=== PATIENT | female | born 1960 | race Caucasian/White ===

== ENCOUNTER 2022-04-28 15:16 | Outpatient (CLI) | payer BC, SELFPAY ==
--- NOTE | ~2022-04-28 | MM_ITS ---
EXAMINATION: MM screening robi BI w pio HISTORY: Screening TECHNIQUE: Craniocaudal and mediolateral oblique 3-D tomosynthesis images were obtained and synthetic 2-D images were generated. CAD analysis was submitted and interpreted. COMPARISON: Comparison to multiple prior studies sequentially, with oldest reviewed study dated 02/18. BREAST PARENCHYMAL COMPOSITION: Breast composed of scattered areas of fibroglandular density FINDINGS: There are new focal asymmetries medially in the left breast on CC view. These are not well visualized on MLO view. The right breast is stable without evidence for malignancy. IMPRESSION: 1. New focal asymmetries medially in the left breast on CC view. 2. Additional mammographic views and possible breast ultrasound are recommended. BI-RADS Category 0: Incomplete: Needs additional imaging evaluation. Reviewed, dictated and finalized at location A. HER IMPRESSION: 1. New focal asymmetries medially in the left breast on CC view. 2. Additional mammographic views and possible breast ultrasound are recommended . BI-RADS Category 0: Incomplete: Needs additional imaging evaluation.
== END 2022-04-28 15:17 | disposition home or self-care (01) ==
PROVIDERS: PCP Family Medicine; Visit Provider Physician Assistant
DX: Z12.31 Encounter for screening mammogram for malignant neoplasm of breast (principal); R92.8 Other abnormal and inconclusive findings on diagnostic imaging of breast
CPT/HCPCS: 77063; 77067

== ENCOUNTER 2022-05-29 13:59 | Outpatient (CLI) | payer BC, SELFPAY ==
--- NOTE | ~2022-05-29 | US_ITS ---
US breast LT limited INDICATION: Follow-up left breast asymmetry TECHNIQUE: Dedicated Limited left breast ultrasound COMPARISON: No prior studies for comparison. FINDINGS: The left breast is composed of normal heterogeneous echotexture without focal solid or cyst ic mass. IMPRESSION: 1: Normal left breast ultrasound. No sonographic correlate to left breast asymmetry which is likely b enign. BI-RADS CATEGORY 3-PROBABLY BENIGN FINDING RECOMMENDATION: Six-month follow-up diagnostic left mammogram recommended. Reviewed, dictated and finalized at location A. TER LATHER IMPRESSION: 1: Normal left breast ultrasound. No sonographic correlate to left breast asymm etry which is likely benign. BI-RADS CATEGORY 3-PROBABLY BENIGN FINDING RECOMMENDATION: Six-month follow-up diagnostic left mammogram recommended.
== END 2022-05-29 14:00 | disposition home or self-care (01) ==
PROVIDERS: PCP Family Medicine; Visit Provider Family Medicine
DX: N63.20 Unspecified lump in the left breast, unspecified quadrant (principal); R92.8 Other abnormal and inconclusive findings on diagnostic imaging of breast
CPT/HCPCS: 76642

== ENCOUNTER 2023-02-07 14:04 | Outpatient (CLI) | payer BC, SELFPAY ==
--- NOTE | ~2023-02-07 | US_ITS ---
EXAMINATION: US arterial ankle brachial ind DATE: 02/07/2023 14:58 INDICATION: Peripheral vascular disease TECHNIQUE: Segmental pressures and plethysmographic and Doppler waveforms of the brachial and lower e xtremity arteries were obtained. COMPARISON: None. FINDINGS: Right and left brachial artery pressures of 127 mm Hg and 145 mm Hg, respectively, are concordant (no rmal difference <= 30 mmHg). The right ankle-brachial index (MARCOS) is 1.16 (normal >= 0.9-1.0). The right great toe-brachial index (TBI) is 0.55 (normal >= 0.65). Arterial Doppler waveforms are biphasic with brisk systolic upstrokes at both right posterior tibial and dorsalis pedis arteries. The left MARCOS is 1.00. The left TBI is 0.69. Arterial Doppler waveforms are biphasic with brisk systol ic upstrokes at both left posterior tibial and dorsalis pedis arteries. IMPRESSION: 1. Mild arterial occlusive disease to the right lower limb with normal right MARCOS but mildly decreased right TBI. 2. No significant arterial occlusive disease to the left lower limb with normal left MARCOS and TBI. Reviewed, dictated and finalized at location A. IMPRESSION: 1. Mild arterial occlusive disease to the right lower limb with normal right AB I but mildly decreased right TBI. 2. No significant arterial occlusive disease to the left lower limb with normal left MARCOS and TBI.
== END 2023-02-07 14:05 | disposition home or self-care (01) ==
PROVIDERS: PCP Family Medicine; Visit Provider Physician Assistant
DX: I73.9 Peripheral vascular disease, unspecified (principal)
CPT/HCPCS: 93922

== ENCOUNTER → 2023-04-24 07:48 | Outpatient (CLI) | payer BC, SELFPAY ==
--- NOTE | ~2023-04-24 | CT_ITS ---
EXAMINATION: CT lumbar spine wo con DATE: 04/24/2023 08:29 INDICATION: Spondylolisthesis, lumbar region. TECHNIQUE: Computed tomography (CT) of the lumbar spine was performed without intravenous contrast. A utomated exposure control and iterative reconstruction technique were employed. The dose-length produ ct was 888.10 mGy-cm. COMPARISON: Lumbar spine MRI 04/24/2023, chest 2 views 02/11/2015 FINDINGS: There is 4 degrees levocurvature of thoracolumbar spine. There is a hypoplastic rib at L1. There is 3 mm anterolisthesis of L3 on L4 and 8 mm anterolisthesis of L5 on S1. S1 is a transitional segment. There are changes of posterior fusion procedure from L4 to S1 with pedicle screws. There is moderately decreased disc height at L2-L3 and L3-L4. There are changes of anterior fusion procedures at L4-L5 and L5-S1 with interbody devices. There are laminectomies at L5 and S1. The following disc l evels are specifically discussed: L1-L2: The disc does not extend beyond the endplate margin. There is mild right and moderate left fac et joint osteoarthritis. There is no neural foraminal stenosis. There is no central canal stenosis. L2-L3: The disc is bulging. There is severe bilateral facet joint osteoarthritis. There is mild bilat eral neural foraminal stenosis. There is mild central canal stenosis. L3-L4: The disc is bulging. There is severe bilateral facet joint osteoarthritis. There is moderate b ilateral neural foraminal stenosis. There is moderate central canal stenosis. L4-L5: There is no facet joint hypertrophy. There is mild bilateral neural foraminal stenosis with po sterior decompression. There is mild central canal stenosis with posterior decompression. L5-S1: There is severe bilateral facet joint hypertrophy. There is mild bilateral neural foraminal st enosis. There is mild central canal stenosis with posterior decompression. IMPRESSION: 1. Moderate lumbar spondylosis. 2. Anterior and posterior fusion procedures from L4 to S1. Reviewed, dictated and finalized at location A. ATHLETE
--- NOTE | ~2023-04-24 | MR_ITS ---
MRI of the lumbar spine Clinical History: Spondylolisthesis Technique: Axial T2-weighted images, and sagittal T1-weighted, T2-weighted, and T2 fat-sat images wer e acquired. Findings: There is posterior fusion hardware from L3 through L5, with bilateral rods and transpedicul ar screws present. There are interbody fusion devices at the L3-L4 and L4-L5 disc spaces. There is 8 mm anterolisthesis of L4 over L5. No suspicious bone marrow signal abnormality seen. At L1-L2, there is diffuse disc bulge and moderate to severe facet arthropathy. There is severe spina l canal stenosis/thecal sac compression. There is severe bilateral neural foraminal, advised. At L2-L3, there is disc bulge and severe facet arthropathy, resulting in severe spinal canal stenosis /thecal sac compression. There is severe bilateral neural foraminal narrowing. At L3-L4, there is posterior decompression. No spinal canal stenosis. Neural foramina are relatively well-preserved. At L4-L5, there is posterior decompression. No central canal stenosis. There is probable severe bilat eral neural foraminal narrowing. At L5-S1, there is minimal disc bulge. There is moderate to severe facet arthropathy. No central arabella l stenosis or neural foraminal narrowing. Paravertebral soft tissues are unremarkable. Impression: Posterior and interbody fusion from L3 through L5, as detailed above, with underlying 8 mm anterolist hesis of L4 over L5. Severe degenerative spondylosis of the lumbar spine, especially at L1-L2 and L2-L3, there is severe c entral canal stenosis/thecal sac compression. Please see details above. Reviewed, dictated and finalized at [facility]. 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 Severe degenerative spondylosis of the lumbar spine, especially at L1-L2 and L2 -L3, there is severe central canal stenosis/thecal sac compression. Please see details above.
== END ==
DX: M43.06 Spondylolysis, lumbar region (principal); M43.27 Fusion of spine, lumbosacral region; M51.26 Other intervertebral disc displacement, lumbar region
CPT/HCPCS: 72131; 72148

== ENCOUNTER → 2023-05-19 07:14 | Outpatient (CLI) | payer BC, SELFPAY ==
--- NOTE | ~2023-05-19 | MM_ITS ---
EXAMINATION: MM screening robi BI w pio HISTORY: Screening TECHNIQUE: Craniocaudal and mediolateral oblique 3-D tomosynthesis images were obtained and synthetic 2-D images were generated. CAD analysis was submitted and interpreted. COMPARISON: Comparison to multiple prior studies sequentially, with oldest reviewed study dated 10/04. BREAST PARENCHYMAL COMPOSITION: There are scattered areas of fibroglandular density. FINDINGS: There is no evidence of suspicious mass, calcification, or architectural distortion to sugg est malignancy in either breast. There has been no suspicious interval change. IMPRESSION: 1. No mammographic evidence of malignancy. 2. Recommend routine screening mammography in one year. BI-RADS Category 1: Negative Reviewed, dictated and finalized at location A. TROMECHANICAL ENGINEER
== END ==
PROVIDERS: PCP Physician Assistant; Visit Provider Physician Assistant
DX: Z12.31 Encounter for screening mammogram for malignant neoplasm of breast (principal)
CPT/HCPCS: 77063; 77067

== ENCOUNTER 2023-07-27 09:11 | Inpatient (IN) | payer BC, SELFPAY ==
[2023-07-27] VITALS (8 sets, daily range): BP systolic 117–181; BP diastolic 66–110; PULSE 67–100; RESP 10–20; TEMP 36.2–36.8; O2SAT 92–98
--- NOTE | ~2023-07-27 | CT_ITS ---
EXAMINATION: CT brain wo con DATE: 07/29/2023 14:47 INDICATION: Altered LOC . TECHNIQUE: Computed tomography (CT) of the head was performed without intravenous contrast. The mA wa s adjusted according to patient size. Iterative reconstruction technique was employed. The dose-lengt h product was 605.33 mGy-cm. COMPARISON: None. FINDINGS: No acute intracranial hemorrhage or extra-axial fluid collection. No hydrocephalus, mass, or herniation. No acute ischemic infarct. Unremarkable dural venous sinus attenuation. No acute osseous abnormality. Minimal right ethmoid opacification, trace bilateral mastoid fluid, the remaining aerated spaces are clear. IMPRESSION: No acute intracranial process. Reviewed, dictated and finalized at location K. 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
--- NOTE | ~2023-07-27 | CT_ITS ---
EXAMINATION: CT lumbar spine wo con DATE: 07/27/2023 09:56 INDICATION: Low back pain radiating down the right leg. TECHNIQUE: Computed tomography (CT) of the lumbar spine was performed without intravenous contrast. A utomated exposure control and iterative reconstruction technique were employed. The dose-length produ ct was 1334.45 mGy-cm. COMPARISON: 04/24/2023 FINDINGS: Transitional thoracolumbar and lumbosacral segments with right-sided hypoplastic riblets at L1. S1 is partially lumbarized with left-sided transverse process. There are 4 intervening nonrib-bearing lumb ar segments. 3 mm anterolisthesis L3 on L4 and 4 mm anterolisthesis L5 on S1. L5 and S1 laminectomies and partial L4 laminectomy. Instrumented anterior and posterior spinal fusion procedures from L4-S1 with interbody fusion devices and bilateral vertical karen and pedicle screw fixations. Minimal anterio r wedging at T12. No acute fracture. Severe disc height loss with degenerative endplate changes at T1 0-T11, T11-T12 and L2-L3. Moderate disc height loss at T12-L1. Mild disc height loss at L3-L4. The fo llowing disc levels are specifically discussed: T11-T12: Disc is bulging. There is severe bilateral facet joint osteoarthritis. There is moderate queta ateral neural foraminal stenosis. There is mild central canal stenosis. T12-L1: Disc is bulging. There is mild left and moderate right facet joint osteoarthritis. There is m ild left and moderate right neural foraminal stenosis. There is no central canal stenosis. L1-L2: The disc does not extend beyond the endplate margin. There is mild bilateral facet osteoarthri tis. There is no neural foraminal stenosis. There is no central canal stenosis. L2-L3: Disc is bulging with large likely partially calcified right paracentral disc extrusion which e xtends 1.6 similar cephalad to the level of the inferior endplate of L2 which measures up to 11 mm me dial collateral and 7 mm AP contributing to severe central canal stenosis. There is moderate right an d moderate to severe left facet joint osteoarthritis. There is moderate left and severe right neural foraminal stenosis. L3-L4: Disc is bulging. There is severe bilateral facet joint osteoarthritis. There is moderate bilat eral neural foraminal stenosis. There is severe central canal stenosis. L4-L5: Mild hypertrophic change along the posterior margin of the fused disc space. There is also and instrumented fusion procedure the wording at the bilateral facet joints. There is mild bilateral priscila ral foraminal stenosis. With posterior decompression with no central canal stenosis. L5-S1: Mild hypertrophic changes along the posterior margin of the fused disc space most prominent at the neural foramina. Instrumented posterior spinal fusion at the facet joints. There is moderate queta ateral neural foraminal stenosis. There is posterior decompression with no central canal stenosis. IMPRESSION: 1. Severe lumbar spondylosis with significant interval progression at L2-L3 including a large right p aracentral disc extrusion contributing to severe central canal stenosis at this level. 2. Stable appearance of postoperative change and lower lumbar spine including combined instrumented L 4-S1 anterior and posterior spinal fusion with L5 and S1 laminectomies. Reviewed, dictated and finalized at location A. BIOLOGY SCIENTIST IMPRESSION: 1. Severe lumbar spondylosis with significant interval progression at L2-L3 inc luding a large right paracentral disc extrusion contributing to severe central canal stenosis at this level. 2. Stable appearance of postoperative change and lower lumbar spine including c ombined instrumented L4-S1 anterior and posterior spinal fusion with L5 and S1 laminectomies.
--- NOTE | ~2023-07-27 | MR_ITS ---
EXAMINATION: MR lumbar spine wo con DATE: 07/29/2023 07:20 INDICATION: Back pain with slight dysfunction and urinary retention TECHNIQUE: Magnetic resonance imaging (MRI) of the lumbar spine was performed without intravenous con trast. Sequences included sagittal T2-weighted FSE, sagittal T2-weighted FS FSE, sagittal T1-weighted FSE, and axial T2-weighted FSE. COMPARISON: CT dated 07/27/[address] and MRI dated 04/24/2023 FINDINGS: Transitional thoracolumbar and lumbosacral segments with right-sided hypoplastic riblets at L1. S1 is partially lumbarized with left-sided transverse process. There are 4 intervening nonrib-bearing lumb ar segments. 1-2 mm anterolisthesis L3 on L4 and 5 mm anterolisthesis L5 on S1. L5 and S1 laminectomi es and partial L4 laminectomy. Instrumented anterior and posterior spinal fusion procedures from L4-S 1 with interbody fusion devices and bilateral vertical karen and pedicle screw fixations. Minimal anter ior wedging at T12. Severe disc height loss with T2 hyperintense fibrovascular degenerative endplate changes at T10-T11, T11-T12 and L2-L3. Marrow signal is otherwise unremarkable. Moderate disc height loss at T12-L1. The conus medullaris terminates at L2. There is normal signal in the caudal spinal co rd. There are disc bulges with increased central signal which could be related to this calcification as seen on prior CT or annular fissures at T10-T11, T11-T12 and T12-L1. The following disc levels ar e specifically discussed: T10-T11: Imaged only on the sagittal images. Disc is bulging. There is mild left and severe right fac et osteoarthritis. There is moderate bilateral neural foraminal stenosis, right greater than left. Th ere is moderate to severe central canal stenosis. T11-T12: Imaged only on the sagittal images. Disc is bulging. There is severe bilateral facet osteoar thritis. There is moderate bilateral neural foraminal stenosis. There is mild to moderate central can al stenosis. T12-L1: Imaged only on the sagittal images. Disc is bulging. There is mild left and moderate right fa cet joint osteoarthritis. There is mild bilateral neural foraminal stenosis. There is mild central ca nal stenosis. L1-L2: The disc does not extend beyond the endplate margin. There is mild to moderate bilateral facet joint osteoarthritis. There is no neural foraminal stenosis. There is no central canal stenosis. L2-L3: Disc is bulging with annular fissure and large disc extrusion which extends up to 1.6 cm cepha lad to the level of the inferior endplate of L2. This most prominent in the right paracentral region but extends from foraminal zone to foraminal zone. There is moderate right and moderate to severe lef t facet joint osteoarthritis. There is severe bilateral neural foraminal stenosis. There is severe ce ntral canal stenosis. L3-L4: Disc is bulging with annular fissure and broad-based disc extrusion extending from the left pa racentral region to the right foraminal zone with disc material extending up to 4 mm cephalad to the level of the inferior endplate of L3. There is severe bilateral facet joint osteoarthritis. There is moderate bilateral neural foraminal stenosis. There is severe central canal stenosis. L4-L5: Mild hypertrophic change along the posterior margin of the fused disc space. There is also an instrumented fusion procedure at the bilateral facet joints. There is mild bilateral neural foraminal stenosis. There is posterior decompression with no central canal stenosis. L5-S1: Mild hypertrophic changes along the posterior margin of the fused disc space most prominent at the neural foramina. Instrumented posterior spinal fusion at the facet joints. There is moderate queta ateral neural foraminal stenosis. There is posterior decompression with no central canal stenosis. IMPRESSION: 1. Severe lumbar and lower thoracic spondylosis with significant interval progression at L2-L3 incl
--- NOTE | ~2023-07-27 | XR_ITS ---
EXAMINATION: XR chest 1V portable DATE: 07/29/2023 08:13 INDICATION: Leukocytosis TECHNIQUE: frontal view of the chest was obtained. COMPARISON: Chest radiograph dated 02/11/15 FINDINGS: The lungs remain clear with no focal airspace opacities, pulmonary edema, pleural effusion or pneumot horax. The cardiomediastinal silhouette is within normal limits for AP technique. IMPRESSION: 1. No acute cardiopulmonary disease. Reviewed, dictated and finalized at location A. D MACHINE OPERATOR
--- NOTE | ~2023-07-27 | CT_ITS ---
EXAMINATION: CTA brain carotid DATE: 07/29/2023 20:38 INDICATION: confusion TECHNIQUE: Computed tomographic angiography (CTA) of the head and neck was performed with 100 mL Omni paque-350 intravenous contrast. CTA of the neck was performed with intravenous contrast. Automated ex posure control and iterative reconstruction technique were employed. The dose-length product was 1186 .20 mGy-cm. Maximum intensity projection and volume rendered 3D-reconstructions were created by the t echnologist on a separate workstation. COMPARISON: CT brain, same date. FINDINGS: CTA HEAD: No large vessel occlusion, aneurysm, high flow vascular malformation, nidus or extravasation. Symmetr ic parenchymal enhancement. Patent cerebral veins. CTA NECK: Aortic arch and proximal great vessels: Moderate arch calcification. Normal arch anatomy. Right common carotid, carotid bifurcation, and internal carotid artery: Mild calcification at the bif urcation and proximal internal carotid artery.There is 0% stenosis of the proximal right internal car otid artery relative to normal distal artery lumen diameter (NASCET criteria). Left common carotid, carotid bifurcation, and internal carotid artery: No plaque.There is 0% stenosis of the proximal left internal carotid artery relative to normal distal artery lumen diameter (NASCET criteria). Vertebral arteries: No significant plaque or stenosis. Left vertebral artery is dominant. Severe hypo plasia of the right vertebral artery. Beam hardening and quantum mottle partially obscure the origin and proximal several centimeters of the right vertebral artery, which appears to be patent. Other findings: None. IMPRESSION: No large vessel intracranial occlusion, high-grade intracranial stenosis, or aneurysm. No carotid or vertebral artery occlusion, dissection, or significant stenosis. Reviewed, dictated and finalized at location K. T PATHOLOGIST IMPRESSION: No large vessel intracranial occlusion, high-grade intracranial stenosis, or an eurysm. No carotid or vertebral artery occlusion, dissection, or significant stenosis.
--- NOTE | 2023-07-27 09:20 | PC.NURSE ---
Pt states pain unrelieved with Gabapentin and Flexeril. Pt states treated for same c/o last week at [place].
[2023-07-27] MEDS: ACETAMINOPHEN 500 MG TABLET 1000 MG PO ×3 (09:58→20:28)
[2023-07-27] MEDS: diazePAM INJ (*CRX) 10 MG/2 ML SYRINGE 2 MG IV PUSH (09:59)
[2023-07-27] MEDS: KETOROLAC 30 MG/ML VIAL (*BKC) IV PUSH (10:00)
[2023-07-27] MEDS: methylPREDNISolone SOD SUCC 125 MG VIAL IV PUSH (10:00)
--- NOTE | 2023-07-27 10:06 | ED.GENADULT ---
HPI - General Adult General Chief complaint: Unspecified <DONTE Florse Last Filed: 07/27/23 15:04> Stated complaint: sciatica <DONTE Flores Last Filed: 07/27/23 15:04> Source: patient and old records reviewed <DONTE Flores Last Filed: 07/27/23 15:04> Mode of arrival: EMS <DONTE Flores Last Filed: 07/27/23 15:04> Limitations: no limitations <DONTE Flores Last Filed: 07/27/23 15:04> History of Present Illness HPI narrative: Patient is a 63-year-old female, with past medical history of chronic back pain status post lumbar fusion 2014, who presents the ED via EMS with report of sciatic pain. Patient reports having issues with right-sided lumbar pain with sciatica for the last several months. She has been seen her primary care doctor and pain management for this. She is currently taking gabapentin for her pain. Patient states pain became more severe this morning to the point that she was unable to walk or stand up due to the pain. She has not taken anything for the pain this morning. Reports intermittent numbness to top of right leg, denies saddle anesthesia. Denies bowel or bladder incontinence, difficulty urinating, weakness of lower extremities, abdominal pain, nausea, vomiting, fevers. <DONTE Flores Last Filed: 07/27/23 15:04> Related Data Home medications: Home Medications Medication Instructions Recorded Confirmed amlodipine 5 mg tablet 5 mg PO DAILY 07/25/22 07/27/23 atorvastatin 40 mg tablet 40 mg PO DAILY 07/25/22 07/27/23 diclofenac sodium 75 mg 75 mg PO BID 07/25/22 07/27/23 tablet,delayed release escitalopram oxalate 20 mg tablet 20 mg PO DAILY 07/25/22 07/27/23 lisinopril 20 1 tablet PO DAILY 07/25/22 07/27/23 mg-hydrochlorothiazide 25 mg tablet metformin 500 mg tablet 500 mg PO BID 07/25/22 07/27/23 pen needle, diabetic 32 gauge x #50 ea 07/25/22 07/27/23 5/32 (BD Zuleyma 2nd Gen Pen Needle) ursodiol 250 mg tablet 250 mg PO DAILY 07/25/22 07/27/23 gabapentin 400 mg capsule 300 mg PO TID 07/27/23 07/27/23 glimepiride 4 mg tablet 4 mg PO BID 07/27/23 07/27/23 <Juliana Marcial PA-C - Last Filed: 07/27/23 15:04> Allergies/adverse reactions: Allergies Allergy/AdvReac Type Severity Reaction Status Date / Time cefprozil Allergy Intermediate HIVES Verified 07/27/23 17:23 cephalexin Allergy Intermediate HIVES Verified 07/27/23 17:23 latex Allergy Intermediate BLISTERS Verified 07/27/23 17:23 <Juliana Marcial PA-C - Last Filed: 07/27/23 15:04> Review of Systems Review of Systems: CONSTITUTIONAL: Denies fever, chills, or sweats. CARDIOVASCULAR: Denies chest pain. RESPIRATORY: Denies dyspnea. GASTROINTESTINAL: Denies incontinence, abdominal pain, nausea, vomiting, or diarrhea. GENITOURINARY: Denies incontinence, dysuria or hematuria. MUSCULOSKELETAL: See HPI. NEUROLOGIC: Denies headache, dizziness, numbness, or weakness. <Juliana Marcial PA-C - Last Filed: 07/27/23 15:04> All systems reviewed & are unremarkable except as noted in HPI and below <Juliana Marcial PA-C - Last Filed: 07/27/23 15:04> [facility] Past Medical History Medical History: Medical History (Updated 07/27/23 @ 16:06 by Molly Eli PA-C) Chronic kidney disease, stage 2 (mild) Hyperlipidemia, unspecified Hypertensive chronic kidney disease with stage 1 through stage 4 chronic kidney disease, or unspecified chronic kidney disease Major depressive disorder, recurrent, unspecified Nicotine dependence, cigarettes, uncomplicated Nonalcoholic steatohepatitis (BLACK) Obstructive sleep apnea (adult) (pediatric) Tobacco dependence Type 2 diabetes mellitus with diabetic neuropathy, unspecified <Juliana Marcial PA-C - Last Filed: 07/27/23 15:04> Surgical History Surgical History: Surgical History (Updated 02/16/24 @ 16:02 by Molly Eli PA-C) History
--- NOTE | 2023-07-27 12:02 | PC.NURSE ---
Pt ambulated with 2 assist using walker. Pt tolerated standing, ambulated with shuffling gait 3-4 feet to recliner. States It feels like it is grabbing rubs right hip.
[2023-07-27] MEDS: traMADol HCL (*CRX) 50 MG TABLET PO (12:28)
[2023-07-27 14:38] LABS: Basophils Percent Auto 0.2 % (0.2-1.2); Hematocrit 49.5 % (37.0-47.0); Hemoglobin 16.4 g/dL (12.0-15.0); Immature Granulocyte Absolute 0.06 K/mm3 (0.00-0.031); Immature Granulocyte Percent A 0.5 % (0-0.5); Lymphocytes Absolute Auto 1.06 K/mm3 (0.9-3.2); Lymphocytes Percent Auto 8.5 % (18.3-44.2); Mean Corpuscular HGB Conc 33.1 g/dl (32-36); Mean Corpuscular Hemoglobin 31.7 pg (26-34); Mean Corpuscular Volume 95.6 fl (80-100); Mean Platelet Volume 11.9 fl (7.4-10.4); Monocytes Absolute Auto 0.1 K/mm3 (0.1-0.6); Monocytes Percent Auto 0.9 % (2.6-8.5); Neutrophils Absolute Auto 11.2 K/mm3 (1.3-6.7); Neutrophils Percent Auto 89.9 % (45.5-73.1); Platelet Count Result 205 k/mm3 (150-375); Red Blood Count 5.18 M/mm3 (4.2-5.4); Red Cell Distribution Width 13.3 % (11.5-14.5); White Blood Count 12.5 K/mm3 (4.5-10.0)
[2023-07-27 14:46] LABS: Alanine Aminotransferase 40 U/L (6-35); Albumin Level 4.3 g/dL (3.5-5.1); Alkaline Phosphatase 238 U/L (38-126); Anion Gap 11 mmol/L (8-16); Aspartate Amino Transferase 35 U/L (14-36); Bilirubin,Total 0.9 mg/dL (0.2-1.3); Blood Urea Nitrogen 14 mg/dL (7-17); Calcium 9.7 mg/dL (8.4-10.2); Carbon Dioxide 26 mmol/L (22-30); Chloride 98 mmol/L (98-107); Estimated CRCL calculation 75 ml/min; Estimated Glomerular Filt Rate > 60; Glucose 359 mg/dL (65-110); Potassium 4.1 mmol/L (3.4-5.0); Sodium 135 mmol/L (137-145)
[2023-07-27] MEDS: IBUPROFEN 600 MG TABLET PO ×2 (15:37→20:28)
--- NOTE | 2023-07-27 15:37 | WPDNEUROSGCN ---
Assessment and Plan Assessment and plan (1) Sciatica of right side associated with disorder of lumbar spine: Code(s): M53.86 - Other specified dorsopathies, lumbar region Status: Acute (2) Hx of spinal fusion: Code(s): Z98.1 - Arthrodesis status Status: Acute (3) Lumbar spinal stenosis due to adjacent segment disease after fusion procedure: Code(s): M48.061 - Spinal stenosis, lumbar region without neurogenic claudication; M51.36 - Other intervertebral disc degeneration, lumbar region Status: Acute Assessment and Plan: The patient is a pleasant 63-year-old female with previous L3-[address] Santos in [facility] (last surgery was 2015), who presents with intractable low back pain and right groin pain. Her symptoms have been progressing since Apr-May. CT lumbar study shows she has developed adjacent level stenosis at L2-3 and L1-2 with prior fusion at L3-5. I discussed the CT findings with the patient and explained to her that once her pain is controlled and she can safely discharge home she can either follow-up with us at [facility] verse Dr. Santos. She states she would rather go back and see her surgeon Dr. Santos. I told her this would be a good idea as I don't think doing an SCS trial (what has been purposed to her) would give her long time relief and the stenosis is severe and she could progress to having further neurologic symptoms. Patient gives understanding of this. All of her questions were answered, I told her I would leave our info if for some reason Dr. Santos does not take her insurance anymore. Continue pain control with narcotics, muscle relaxants, and consider short course of steroids if her blood sugar levels tolerate. Helga WELLS This case and plan was discussed with my attending Dr. Marrero, who agrees with the above Consult date: 07/27/23 Reason for consult: Intractable back pain and right leg symptoms, adjacent level lumbar stenosis with hx of prior L3-5 fusion. HPI: Debra Peres is a 63 year old female with history of low back pain, diabetic neuropathy, chronic left foot drop, degenerative spondylosis with prior L3-L5 fusion done by Derrek Santos at [facility] in [facility] (her last spinal surgery was in 2015.) She presents to [facility] today due to intractable back pain and right radicular leg symptoms that became severe last night while sleeping. She states she could not ambulate or bear any weight on her right leg due to the severity of radiating pain from her back region into her right groin. The patient reports progressive symptoms over the last 3 months, she has been working with Pain Management had an injection in May which she states flared up this right groin pain . She also admits to some weakness in her right proximal leg, she states she has a hard time lifting her leg in and out of the car. She denies any radiating left leg symptoms, no bladder or bowel dysfunction, no saddle anesthesias. She has had a chronic left foot drop since her 1st back surgery. Patient has also been working with physical therapy recently. She's had a lumbar MRI performed in April 2023, she has not returned back to see Dr. Santos since the fall of 2021. She's been taking gabapentin and diclofenac for her discomfort. [facility] Past Medical History Medical History (Updated 07/27/23 @ 16:06 by Molly Eli PA-C) Chronic kidney disease, stage 2 (mild) Hyperlipidemia, unspecified Hypertensive chronic kidney disease with stage 1 through stage 4 chronic kidney disease, or unspecified chronic kidney disease Major depressive disorder, recurrent, unspecified Nicotine dependence, cigarettes, uncomplicated Nonalcoholic steatohepatitis (BLACK) Obstructive sleep apnea (adult) (pediatric) Tobacco dependence Type 2 diabetes mellitus with diabetic neuropathy, unspecified Surgical History Surgical History (Updated 07/27/23 @ 16:02 by
--- NOTE | 2023-07-27 15:57 | PM.IMHP ---
H&P: HPI History of Present Illness Date/Time: 07/27/23 17:00 Chief Complaint: Right back, hip, and leg pain. Narrative: This is a 63-year-old female smoker with chronic kidney disease, hypertension, hyperlipidemia, and type 2 diabetes mellitus who presented to the emergency department via EMS from home for evaluation of right back, hip, and leg pain. The patient provides the following history. She had lumbar fusion done in [address] Santos at [facility]. Her pain was much better thereafter however in 2021 she once again started to have low back pain and after meeting with her spinal surgeon she was told that she would likely have to have surgery again which she has been trying to avoid. The last several months she has been having increasing issues, mostly with right-sided sciatica, and is to the point where she is now having numbness on the top of her leg and she has had several falls due to ?my leg giving out.? She saw add another specialist for a 2nd opinion in May at which time she was given 2 epidural injections which she believes made the pain worse. She was then referred to pain management for spinal stimulator and she has an upcoming appointment with that specialist next week. She has been on oral prednisone, has been participating in PT, and is on gabapentin at home. None of these modalities are providing her with any relief and things seemed to be get progressively worse. She has a cane and walker at home that she uses on days when her back pain is especially bad. She has chronic left footdrop and uses a brace on that leg. Overall she feels like she is not really safety even walk sometimes. She denies weakness in her legs however and also denies saddle anesthesia, urinary retention, and bowel incontinence. Lumbar CT shows severe lumbar spondylosis with significant interval progression L2-L3 including large right paracentral disc extrusion contributing to severe central canal stenosis at that level with stable appearing postoperative changes. She received several different modalities to treat her pain with only mild improvement. She is being admitted in this setting for pain control neurosurgery consultation. Review of Systems Review of Systems: Twelve systems were reviewed. Has sweats when her pain is bad. No fever or chills. No recent cold or flu symptoms. No chest pain or shortness of breath. Denies nausea, vomiting, and diarrhea. No dysuria. Glucose has been running high since she has been on p.o. prednisone. Denies blurry vision, polydipsia, and polyuria. Except as documented, all other systems were reviewed and are negative. [facility] Past Medical History Medical History Chronic kidney disease, stage 2 (mild) Hyperlipidemia, unspecified Hypertensive chronic kidney disease with stage 1 through stage 4 chronic kidney disease, or unspecified chronic kidney disease Major depressive disorder, recurrent, unspecified Nicotine dependence, cigarettes, uncomplicated Nonalcoholic steatohepatitis (BLACK) Obstructive sleep apnea (adult) (pediatric) Tobacco dependence Type 2 diabetes mellitus with diabetic neuropathy, unspecified Surgical History Surgical History History of cataract surgery Left- 04/08/2007 Right- 05/06/2007 History of section (12/1989) History of hysteroscopy (06/05/16) History of laser assisted in situ keratomileusis (2005) History of lumbar fusion (03/02/15) L3-L5. Family History Family History Father History of melanoma Grandparent Cerebrovascular accident Dementia Social History Social History Social History: Surrogate medical decision maker: Bhaskar Peres Sr., spouse. Code status: Full code. Smoking packs per day: 1 Smoking cigarettes
--- NOTE | 2023-07-27 16:49 | ADMGEN ---
This patient, Debra Peres, was admitted to 3 [facility] Room 330-02. Patient/family oriented to hospital policies and general routines including ID bracelet, bed and alarms, visiting hours, pain management, procedures, bathroom and other care routines, personal items, smoking policy, room service/diet, and visiting hours. Information on how to activate the Rapid Response Team has been discussed. Patient/Family are encouraged to report perceived risks to care and to ask questions if they do not understand what they are told or what they should do.
[2023-07-27 16:56] LABS: CRP 0.6 mg/dL (<1.0)
[2023-07-27 16:57] LABS: Hemoglobin A1C 10.7 % (<5.7)
[2023-07-27 17:06] LABS: Glucose Point of Care 404 mg/dl (65-105)
[2023-07-27 17:16] LABS: Erythrocyte Sedimentation Rate 12 mm/hr (0-20)
[2023-07-27 17:20] LABS: Procalcitonin 0.1 ng/mL
[2023-07-27] MEDS: INSULIN ASPART (*BKC) 100 UNITS/ML 12 UNITS SUB-Q (17:35)
[2023-07-27] MEDS: amLODIPine BESYLATE 5 MG TABLET PO (17:35)
[2023-07-27] MEDS: lisinopriL 20 MG TABLET PO (17:35)
[2023-07-27] MEDS: MORPHINE SULFATE (*CRX) 4 MG/ML INJ IV PUSH (17:35)
[2023-07-27 21:00] LABS: Glucose Point of Care 316 mg/dl (65-105)
[2023-07-27] MEDS: INSULIN ASPART (*BKC) 100 UNITS/ML 8 UNITS SUB-Q (21:03)
[2023-07-27] MEDS: HYDROcodone/acetaminophen (*CRX) 5-325 MG TABLET 1 TAB PO (22:14)
[2023-07-27] MEDS: GABAPENTIN 300 MG CAPSULE PO (22:14)
[2023-07-27 23:41] LABS: Glucose Point of Care 246 mg/dl (65-105)
[2023-07-28] VITALS (8 sets, daily range): BP systolic 106–140; BP diastolic 59–69; PULSE 73–94; RESP 10–20; TEMP 36.3–36.5; O2SAT 92–96
[2023-07-28] MEDS: INSULIN ASPART (*BKC) 100 UNITS/ML SUB-Q ×5 (00:20→20:47)
[2023-07-28] MEDS: GABAPENTIN 300 MG CAPSULE PO ×3 (05:53→20:40)
[2023-07-28] MEDS: HYDROcodone/acetaminophen (*CRX) 5-325 MG TABLET 1 TAB PO ×3 (05:53→20:40)
[2023-07-28 06:36] LABS: Hematocrit 44.6 % (37.0-47.0); Hemoglobin 14.9 g/dL (12.0-15.0); Mean Corpuscular HGB Conc 33.4 g/dl (32-36); Mean Corpuscular Hemoglobin 31.8 pg (26-34); Mean Corpuscular Volume 95.1 fl (80-100); Platelet Count Result 218 k/mm3 (150-375); Red Blood Count 4.69 M/mm3 (4.2-5.4); Red Cell Distribution Width 13.2 % (11.5-14.5); White Blood Count 15.9 K/mm3 (4.5-10.0)
[2023-07-28 06:44] LABS: Anion Gap 5 mmol/L (8-16); Blood Urea Nitrogen 29 mg/dL (7-17); Calcium 9.2 mg/dL (8.4-10.2); Carbon Dioxide 30 mmol/L (22-30); Chloride 98 mmol/L (98-107); Estimated CRCL calculation 53 ml/min; Estimated Glomerular Filt Rate 56; Glucose 263 mg/dL (65-110); Magnesium 1.7 mg/dL (1.6-2.3); Potassium 3.7 mmol/L (3.4-5.0); Sodium 133 mmol/L (137-145)
[2023-07-28 07:35] LABS: Glucose Point of Care 266 mg/dl (65-105)
[2023-07-28] MEDS: metFORMIN HCL 500 MG TABLET PO ×2 (09:27→17:50)
[2023-07-28] MEDS: ACETAMINOPHEN 500 MG TABLET 1000 MG PO ×3 (09:27→20:39)
[2023-07-28] MEDS: lisinopriL 20 MG TABLET PO (09:27)
[2023-07-28] MEDS: predniSONE 20 MG TABLET 60 MG PO (09:27)
[2023-07-28] MEDS: ATORVASTATIN 40 MG TABLET PO (09:27)
[2023-07-28] MEDS: ursodioL 300 MG CAPSULE PO (09:27)
[2023-07-28] MEDS: ESCITALOPRAM OXALATE 10 MG TABLET 20 MG PO (09:27)
[2023-07-28] MEDS: hydroCHLOROthiazide 25 MG TABLET PO (09:28)
[2023-07-28] MEDS: GLIMEPIRIDE 2 MG TABLET 4 MG PO ×2 (09:28→17:50)
[2023-07-28] MEDS: amLODIPine BESYLATE 5 MG TABLET PO (09:28)
[2023-07-28] MEDS: IBUPROFEN 600 MG TABLET PO ×3 (09:28→20:40)
[2023-07-28] MEDS: DICLOFENAC SOD 75 MG TABLET.EC PO ×2 (09:28→20:40)
--- NOTE | 2023-07-28 10:29 | PM.IMPN ---
Progress Note: A&P Assessment and Plan (1) Intractable back pain: Code(s): M54.9 - Dorsalgia, unspecified Status: Acute Assessment and Plan: Known bulging disc with right leg radicular pain with plans for pain control and outpatient follow-up with her own neurosurgeon at [place]. However now patient is having urinary retention and unable to get out of bed a couple hours after working with physical therapy. MRI ordered. Baclofen ordered for muscle spasms. (2) Sciatica of right side associated with disorder of lumbar spine: Code(s): M53.86 - Other specified dorsopathies, lumbar region Status: Acute Assessment and Plan: Known bulging disc with right leg radicular pain with plans for pain control and outpatient follow-up with her own neurosurgeon at [place]. However now patient is having urinary retention and unable to get out of bed a couple hours after working with physical therapy. MRI ordered. Baclofen ordered for muscle spasms. (3) Leukocytosis: Code(s): D72.829 - Elevated white blood cell count, unspecified Status: Acute Assessment and Plan: No obvious signs infection at this time, might be rising due to steroids. Blood cultures in process, ordered UA/Urine culture too. (4) Type 2 diabetes mellitus with hyperglycemia: Code(s): E11.65 - Type 2 diabetes mellitus with hyperglycemia Status: Acute Assessment and Plan: Blood sugars have been elevated and A1c is up to 10.7, ordered additional IV fluids. (5) Hypertension: Code(s): I10 - Essential (primary) hypertension Status: Acute Assessment and Plan: Blood pressure elevated arrival after initiation medicines. (6) Tobacco dependence: Code(s): F17.200 - Nicotine dependence, unspecified, uncomplicated Status: Acute Assessment and Plan: Smoking cessation discussed. Time Spent With Patient Time with patient: Greater than 35 minutes Subjective Date/time seen: 07/28/23 14:29 Interval history: This is a 63-year-old female patient with a history of lower back pain in prior lumbar surgery who is admitted for intractable right-sided radicular pain. Patient was seen by neuro surgery in the ER yesterday and plans to follow-up with her own neurosurgeon after discharge. The plan was to obtain adequate pain control and discharge home. Patient worked well with physical therapy but then a couple hours later could not get out of bed due to an severe pain and spasms of the right leg. Also patient reported she did not urinate at all last night or throughout the day today and bladder scan showed over 400 mL. Straight cath ordered. Will order MRI and not plan to discharge night. Review of Systems Review of Systems: All systems reviewed & are unremarkable except as noted in HPI and below Exam Narrative: General: Well-developed, nontoxic-appearing female in moderate amount of pain. HEENT: Normocephalic, atraumatic. PERRL, EOMI. Sclera anicteric. Oral mucosa moist. Neck: Supple. No JVD Respiratory: Lungs are clear to auscultation bilaterally. Cardiovascular: Regular rate and rhythm with S1-S2. Gastrointestinal: Abdomen is soft, obese, nontender, and nondistended with positive bowel sounds. Skin: Warm and dry. No rash or lesions on limited exam. Extremities: No cyanosis, clubbing, or edema. Radial and pedal pulses intact. Spine: No midline vertebral tenderness. Midline lumbar incision from prior surgery noted. Mild left foot drop. Neurological: Alert. Cranial nerves 2-12 are grossly intact. No gross focal deficits to casual conversation. Psychiatric: Pleasant and cooperative with normal mood and affect. Judgment and insight intact. Objective Data Vital Signs Vital Signs: Vital Signs - 24 hr 07/27/23 11:21 07/27/23 15:47 07/27/23 16:00 Temperature 36.8 C 36.2 C L Pulse Rate 67 98 100 Respiratory Rate 18 20 16 Blood Pressure 122/75 180/99 H 146/83 H Pul
[2023-07-28 11:30] LABS: Glucose Point of Care 334 mg/dl (65-105)
[2023-07-28] MEDS: BACLOFEN 10 MG TABLET 20 MG PO ×2 (12:25→20:39)
[2023-07-28] MEDS: MORPHINE SULFATE (*CRX) 4 MG/ML INJ IV PUSH (14:26)
[2023-07-28] MEDS: SODIUM CHLORIDE 0.9% IV 500 ML IV CONT (15:28)
[2023-07-28] MEDS: SODIUM CHLORIDE 0.9% IV 1,000 ML 100 ML IV CONT (15:29)
[2023-07-28 16:09] LABS: Appearance Urine Clear (Clear); Bacteria Urine None Seen /hpf; Bilirubin Urine Negative (Negative); Blood Urine Negative (Negative); Color Urine Dark Yellow (Yellow); Glucose Urine UA 2+ mg/dL (Negative); Ketones Urine Trace mg/dL (Negative); Leukocyte Esterase Ur Negative LEU/UL (Negative); Need Manual Microscopic Reviewed; Nitrate Urine Negative (Negative); Protein Urine 3+ mg/dL (Negative); RBC Urine 0-2 /hpf (0-2); Specific Grav Ur 1.027 (1.001-1.035); Squamous Epithelial Cell Urine Occasional /hpf (Few); WBC Urine 0-5 /hpf; pH Urine 5.5 (5.0-9.0)
[2023-07-28 16:11] LABS: Add Urine Microscopic? YES
[2023-07-28 16:53] LABS: Glucose Point of Care 320 mg/dl (65-105)
[2023-07-28] MEDS: AMITRIPTYLINE HCL 25 MG TABLET PO (20:41)
[2023-07-28 21:17] LABS: Glucose Point of Care 391 mg/dl (65-105)
[2023-07-29 02:49] VITALS: RESP 12; O2SAT 95
[2023-07-29] MEDS: GABAPENTIN 300 MG CAPSULE PO ×2 (05:51→21:02)
[2023-07-29 06:00] VITALS: BP 118/65; PULSE 71; RESP 19; TEMP 36.8; O2SAT 95
[2023-07-29] MEDS: BACLOFEN 10 MG TABLET 20 MG PO (06:15)
[2023-07-29] MEDS: HYDROcodone/acetaminophen (*CRX) 5-325 MG TABLET 1 TAB PO (06:16)
[2023-07-29 06:22] LABS: Basophils Percent Auto 0.1 % (0.2-1.2); Hematocrit 43.9 % (37.0-47.0); Hemoglobin 14.2 g/dL (12.0-15.0); Immature Granulocyte Absolute 0.09 K/mm3 (0.00-0.031); Immature Granulocyte Percent A 0.5 % (0-0.5); Lymphocytes Absolute Auto 3.18 K/mm3 (0.9-3.2); Lymphocytes Percent Auto 17.4 % (18.3-44.2); Mean Corpuscular HGB Conc 32.3 g/dl (32-36); Mean Corpuscular Hemoglobin 31.3 pg (26-34); Mean Corpuscular Volume 96.7 fl (80-100); Mean Platelet Volume 12.2 fl (7.4-10.4); Monocytes Percent Auto 5.3 % (2.6-8.5); Neutrophils Percent Auto 76.7 % (45.5-73.1); Platelet Count Result 200 k/mm3 (150-375); Red Blood Count 4.54 M/mm3 (4.2-5.4); Red Cell Distribution Width 13.3 % (11.5-14.5); White Blood Count 18.3 K/mm3 (4.5-10.0)
[2023-07-29 06:43] LABS: Alanine Aminotransferase 25 U/L (6-35); Albumin Level 3.5 g/dL (3.5-5.1); Alkaline Phosphatase 145 U/L (38-126); Anion Gap 4 mmol/L (8-16); Aspartate Amino Transferase 26 U/L (14-36); Bilirubin,Total 0.6 mg/dL (0.2-1.3); Blood Urea Nitrogen 41 mg/dL (7-17); Calcium 8.5 mg/dL (8.4-10.2); Carbon Dioxide 29 mmol/L (22-30); Chloride 98 mmol/L (98-107); Estimated CRCL calculation 53 ml/min; Estimated Glomerular Filt Rate 56; Glucose 297 mg/dL (65-110); Potassium 3.9 mmol/L (3.4-5.0); Sodium 131 mmol/L (137-145)
[2023-07-29 07:33] LABS: Glucose Point of Care 286 mg/dl (65-105)
[2023-07-29] MEDS: INSULIN ASPART (*BKC) 100 UNITS/ML SUB-Q ×4 (09:02→21:32)
[2023-07-29] MEDS: GLIMEPIRIDE 2 MG TABLET 4 MG PO ×2 (09:03→16:58)
[2023-07-29] MEDS: ESCITALOPRAM OXALATE 10 MG TABLET 20 MG PO (09:04)
[2023-07-29] MEDS: predniSONE 20 MG TABLET 60 MG PO (09:04)
[2023-07-29] MEDS: hydroCHLOROthiazide 25 MG TABLET PO (09:04)
[2023-07-29] MEDS: DICLOFENAC SOD 75 MG TABLET.EC PO ×2 (09:04→20:13)
[2023-07-29] MEDS: ACETAMINOPHEN 500 MG TABLET 1000 MG PO ×2 (09:04→20:13)
[2023-07-29] MEDS: metFORMIN HCL 500 MG TABLET PO ×2 (09:04→16:58)
[2023-07-29] MEDS: lisinopriL 20 MG TABLET PO (09:04)
[2023-07-29] MEDS: amLODIPine BESYLATE 5 MG TABLET PO (09:04)
[2023-07-29] MEDS: ursodioL 300 MG CAPSULE PO (09:04)
[2023-07-29] MEDS: IBUPROFEN 600 MG TABLET PO ×2 (09:05→20:13)
[2023-07-29] MEDS: ATORVASTATIN 40 MG TABLET PO (09:05)
--- NOTE | 2023-07-29 11:26 | PM.IMPN ---
Progress Note: A&P Assessment and Plan (1) Altered mental status: Code(s): R41.82 - Altered mental status, unspecified Status: Acute Assessment and Plan: 07/29: Episode of confusion and disorientation that progressed to unconscious state throughout the day. Patient did respond to painful stimuli. She also began to respond to administration Narcan. Sent for CT scan of the head. Also due to increasing white blood cell count ordered lumbar puncture to assess for meningitis. Will start IV antibiotics. Additional blood cultures have been on. Pfeiffer catheter has been placed due to urinary retention altered level of consciousness and inability to ambulate. (2) Intractable back pain: Code(s): M54.9 - Dorsalgia, unspecified Status: Acute Assessment and Plan: Known bulging disc with right leg radicular pain with plans for pain control and outpatient follow-up with her own neurosurgeon at [place]. However now patient is having urinary retention and unable to get out of bed a couple hours after working with physical therapy. MRI ordered. Baclofen ordered for muscle spasms. 07/29: MRI of the spine obtained before patient's episode of altered LOC (3) Sciatica of right side associated with disorder of lumbar spine: Code(s): M53.86 - Other specified dorsopathies, lumbar region Status: Acute Assessment and Plan: Known bulging disc with right leg radicular pain with plans for pain control and outpatient follow-up with her own neurosurgeon at [place]. However now patient is having urinary retention and unable to get out of bed a couple hours after working with physical therapy. MRI ordered. Baclofen ordered for muscle spasms. (4) Leukocytosis: Code(s): D72.829 - Elevated white blood cell count, unspecified Status: Acute Assessment and Plan: No obvious signs infection at this time, might be rising due to steroids. Blood cultures in process, ordered UA/Urine culture too. 07/29: White blood cell count continues to rise. Repeat blood cultures drawn. Chest x-ray negative. UA unremarkable. start IV antibiotics and obtain lumbar puncture. (5) Type 2 diabetes mellitus with hyperglycemia: Code(s): E11.65 - Type 2 diabetes mellitus with hyperglycemia Status: Acute Assessment and Plan: Blood sugars have been elevated and A1c is up to 10.7, ordered additional IV fluids. (6) Hypertension: Code(s): I10 - Essential (primary) hypertension Status: Acute Assessment and Plan: Blood pressure elevated arrival after initiation medicines. (7) Tobacco dependence: Code(s): F17.200 - Nicotine dependence, unspecified, uncomplicated Status: Acute Assessment and Plan: Smoking cessation discussed. Time Spent With Patient Time with patient: Greater than 35 minutes Subjective Date/time seen: 07/29/23 13:06 Interval history: This is a 63-year-old female patient who was admitted for right lower back pain. Yesterday she had urinary retention. Ordered MRI which has been accomplished but not read. Neurosurgery had decided the patient can be discharged after pain control and follow-up with her own neurosurgeon at [place]. The plan for today was for her to see physical therapy and be discharged home with pain medication. However, after working with physical therapy patient could not get out of the bed again and she began to have change in level of consciousness. Her decrease in consciousness was rather delayed onset until she became responsive only to painful stimuli. It was noted that patient did have a visitor for a very brief moment. Patient appeared to be over sedated though she had not received any sedating medications since day shift started. Patient did respond to small amount of IV Narcan. Sent for CT scan of brain. Discontinued baclofen. Pfeiffer catheter inserted due to urinary retention and inability to stand up as well as
[2023-07-29] MEDS: SODIUM CHLORIDE 0.9% IV 1,000 ML 100 ML IV CONT ×2 (11:30→21:02)
[2023-07-29 11:35] LABS: Glucose Point of Care 249 mg/dl (65-105)
[2023-07-29 12:04] LABS: Fractional Inspired Oxygen 21 %; HCO3 VBG 24.6 mEq/l (24.0-30.0); PCO2 VBG 40.8 mmHg (42.0-48.0); pH VBG 7.398 (7.300-7.400)
[2023-07-29 12:05] LABS: Device ROOM AIR
[2023-07-29 12:08] LABS: Hematocrit 42.3 % (37.0-47.0); Hemoglobin 13.9 g/dL (12.0-15.0); Mean Corpuscular HGB Conc 32.9 g/dl (32-36); Mean Corpuscular Hemoglobin 31.4 pg (26-34); Mean Corpuscular Volume 95.5 fl (80-100); Mean Platelet Volume 11.7 fl (7.4-10.4); Platelet Count Result 226 k/mm3 (150-375); Red Blood Count 4.43 M/mm3 (4.2-5.4); Red Cell Distribution Width 13.3 % (11.5-14.5); White Blood Count 20.3 K/mm3 (4.5-10.0)
[2023-07-29 12:17] LABS: Acetaminophen < 10 ug/mL (10-30); Ammonia < 9 umol/L (9-30); Lactic Acid Reflex 1.6 mmol/L (0.7-2.0); Salicylate < 1.0 mg/dL (2-20)
[2023-07-29 12:18] LABS: Alanine Aminotransferase 24 U/L (6-35); Albumin Level 3.5 g/dL (3.5-5.1); Alkaline Phosphatase 149 U/L (38-126); Anion Gap 6 mmol/L (8-16); Aspartate Amino Transferase 21 U/L (14-36); Bilirubin,Total 0.5 mg/dL (0.2-1.3); Blood Urea Nitrogen 41 mg/dL (7-17); Calcium 8.5 mg/dL (8.4-10.2); Carbon Dioxide 24 mmol/L (22-30); Chloride 101 mmol/L (98-107); Estimated CRCL calculation 41 ml/min; Estimated Glomerular Filt Rate 42; Glucose 253 mg/dL (65-110); Potassium 3.4 mmol/L (3.4-5.0); Sodium 131 mmol/L (137-145)
[2023-07-29 12:22] LABS: Beta-Hydroxybutyrate/Acetoacetate 0.11 mmol/L (0.02-0.27)
[2023-07-29 13:07] VITALS: BP 122/73; PULSE 77; RESP 18; TEMP 35.9; O2SAT 99
[2023-07-29] MEDS: NALOXONE HCL 0.4 MG/ML VIAL 0.1 MG IV PUSH (13:13)
[2023-07-29] MEDS: NALOXONE HCL 0.4 MG/ML VIAL (13:45)
[2023-07-29 13:53] LABS: Barbiturate Screen Urine Negative (Negative)
[2023-07-29 14:00] VITALS: BP 117/65; PULSE 73; RESP 10; TEMP 36.3; O2SAT 97
[2023-07-29 14:01] LABS: Amphetamine Screen Urine Negative (Negative); Cannabinoid Screen Urine Negative (Negative); Cocaine Screen Urine Negative (Negative); Methadone Screen Urine Negative (Negative); Opiate Screen Urine Positive (Negative); Phencyclidine Screen Urine Negative (Negative)
[2023-07-29 14:13] LABS: Benzodiazepines Screen Urine Positive (Negative)
[2023-07-29 14:53] LABS: Procalcitonin 0.1 ng/mL
[2023-07-29] MEDS: cefTRIAXone 2 GM/NS 100 ML 2 GM/100 ML BAG IVPB (15:15)
[2023-07-29 16:33] LABS: Vitamin B12 > 1000.0 pg/mL (239-931)
--- NOTE | 2023-07-29 16:40 | PC.NURSE ---
Patient noted to be more lethargic and difficult to arouse. Patient opening eyes to sternal rub but not responding to questions. Vital signs stable. See vital signs flow sheet. Hospitalist Blaise Jensen, AUTOMOBILE INSPECTOR, made aware and responded at bedside to assess patient at 1305. Narcan order received at 1307 and administered at 1313. Patient more arousable but still not answering questions when asked. Further orders obtained. Patient started becoming more arousable around 1455. Patient able to answer orientation questions but noted difficulty finding words when asked various questions and noted to speak some words repetitively. This RN asked patient if she took anything besides what nursing has given her. Patient noted her step-son visited her today. First patient noted that she did not take anything. Later patient noted to keep repeating he's a drug addict and klonopin . When asked again if she took anything aside from what nursing has given her, she stated I don't know. Maybe . Floor RN at bedside during conversation. Hospitalist made aware of conversation. Patient being moved closer to nurses for closer observation. No visiting per hospitalist. Patient made aware and is agreeable to plan.
[2023-07-29] MEDS: VANCOMYCIN 2,000 MG/NS 500 ML 2,000 MG/500 ML BAG 250 MG IVPB (16:51)
[2023-07-29 16:59] LABS: Glucose Point of Care 299 mg/dl (65-105)
[2023-07-29 17:50] LABS: Folic Acid > 20.0 ng/mL (2.76->20)
[2023-07-29] MEDS: AMITRIPTYLINE HCL 25 MG TABLET PO (20:13)
[2023-07-29 21:23] VITALS: BP 134/57; PULSE 83; RESP 17; TEMP 36.2; O2SAT 95
[2023-07-29 21:24] LABS: Glucose Point of Care 281 mg/dl (65-105)
[2023-07-29 22:33] LABS: MRSA (PCR) DETECTED (NOT DETECTE)
[2023-07-30] MEDS: cefTRIAXone 2 GM/NS 100 ML 2 GM/100 ML BAG IVPB ×2 (03:42→15:08)
[2023-07-30 05:54] VITALS: BP 143/70; PULSE 84; RESP 18; TEMP 36.6; O2SAT 96
[2023-07-30] MEDS: SODIUM CHLORIDE 0.9% IV 1,000 ML 100 ML IV CONT ×2 (05:59→16:57)
[2023-07-30] MEDS: GABAPENTIN 300 MG CAPSULE PO ×3 (05:59→21:30)
[2023-07-30 06:27] LABS: Basophils Percent Auto 0.1 % (0.2-1.2); Hematocrit 40.1 % (37.0-47.0); Hemoglobin 13.5 g/dL (12.0-15.0); Immature Granulocyte Absolute 0.06 K/mm3 (0.00-0.031); Immature Granulocyte Percent A 0.4 % (0-0.5); Lymphocytes Absolute Auto 2.82 K/mm3 (0.9-3.2); Mean Corpuscular HGB Conc 33.7 g/dl (32-36); Mean Corpuscular Hemoglobin 32.1 pg (26-34); Mean Corpuscular Volume 95.2 fl (80-100); Mean Platelet Volume 12.2 fl (7.4-10.4); Monocytes Absolute Auto 0.9 K/mm3 (0.1-0.6); Monocytes Percent Auto 6.3 % (2.6-8.5); Neutrophils Percent Auto 74.2 % (45.5-73.1); Platelet Count Result 161 k/mm3 (150-375); Red Blood Count 4.21 M/mm3 (4.2-5.4); Red Cell Distribution Width 13.2 % (11.5-14.5); White Blood Count 14.9 K/mm3 (4.5-10.0)
[2023-07-30 06:49] LABS: Alanine Aminotransferase 22 U/L (6-35); Albumin Level 3.2 g/dL (3.5-5.1); Alkaline Phosphatase 150 U/L (38-126); Anion Gap 8 mmol/L (8-16); Aspartate Amino Transferase 33 U/L (14-36); Bilirubin,Total 0.4 mg/dL (0.2-1.3); Blood Urea Nitrogen 34 mg/dL (7-17); Calcium 8.5 mg/dL (8.4-10.2); Carbon Dioxide 21 mmol/L (22-30); Chloride 107 mmol/L (98-107); Estimated CRCL calculation 57 ml/min; Estimated Glomerular Filt Rate > 60; Glucose 222 mg/dL (65-110); Magnesium 2.2 mg/dL (1.6-2.3); Potassium 3.3 mmol/L (3.4-5.0); Sodium 136 mmol/L (137-145)
[2023-07-30 07:18] LABS: Glucose Point of Care 214 mg/dl (65-105)
[2023-07-30 08:05] VITALS: BP 138/70; PULSE 86; TEMP 36.9; O2SAT 96
[2023-07-30] MEDS: POTASSIUM CHLORIDE 20 MEQ ER TABLET 60 MEQ PO (08:08)
[2023-07-30] MEDS: INSULIN ASPART (*BKC) 100 UNITS/ML SUB-Q ×4 (08:09→21:33)
[2023-07-30] MEDS: hydroCHLOROthiazide 25 MG TABLET PO (08:10)
[2023-07-30] MEDS: predniSONE 20 MG TABLET 60 MG PO (08:11)
[2023-07-30] MEDS: ESCITALOPRAM OXALATE 10 MG TABLET 20 MG PO (08:11)
[2023-07-30] MEDS: lisinopriL 20 MG TABLET PO (08:11)
[2023-07-30] MEDS: ATORVASTATIN 40 MG TABLET PO (08:11)
[2023-07-30] MEDS: amLODIPine BESYLATE 5 MG TABLET PO (08:11)
[2023-07-30] MEDS: DICLOFENAC SOD 75 MG TABLET.EC PO ×2 (08:11→21:30)
[2023-07-30] MEDS: ursodioL 300 MG CAPSULE PO (08:11)
[2023-07-30] MEDS: metFORMIN HCL 500 MG TABLET PO ×2 (08:11→16:58)
[2023-07-30] MEDS: GLIMEPIRIDE 2 MG TABLET 4 MG PO ×2 (08:12→16:58)
[2023-07-30] MEDS: ACETAMINOPHEN 500 MG TABLET 1000 MG PO ×3 (08:19→21:30)
[2023-07-30] MEDS: IBUPROFEN 600 MG TABLET PO ×3 (08:19→21:30)
--- NOTE | 2023-07-30 08:50 | PM.IMPN ---
Progress Note: A&P Assessment and Plan (1) Altered mental status: Code(s): R41.82 - Altered mental status, unspecified Status: Acute Assessment and Plan: 07/29: Episode of confusion and disorientation that progressed to unconscious state throughout the day. Patient did respond to painful stimuli. She also began to respond to administration Narcan. Sent for CT scan of the head. Also due to increasing white blood cell count ordered lumbar puncture to assess for meningitis. Will start IV antibiotics. Additional blood cultures have been on. Pfeiffer catheter has been placed due to urinary retention altered level of consciousness and inability to ambulate. 07/30: Back to baseline. Cancel MRI and Lumbar Puncture (2) Accidental overdose: Code(s): T50.901A - Poisoning by unspecified drugs, medicaments and biological substances, accidental (unintentional), initial encounter Status: Acute Assessment and Plan: 07/30: Unprescribed benzodiazepine in urine drug screen while altered. AMS now resolved and back to baseline. Poly-pharmacy as patient also received narcotics and baclofen. (3) Intractable back pain: Code(s): M54.9 - Dorsalgia, unspecified Status: Acute Assessment and Plan: Known bulging disc with right leg radicular pain with plans for pain control and outpatient follow-up with her own neurosurgeon at [place]. However now patient is having urinary retention and unable to get out of bed a couple hours after working with physical therapy. MRI ordered. Baclofen ordered for muscle spasms. 07/29: MRI of the spine obtained before patient's episode of altered LOC (4) Sciatica of right side associated with disorder of lumbar spine: Code(s): M53.86 - Other specified dorsopathies, lumbar region Status: Acute Assessment and Plan: Known bulging disc with right leg radicular pain with plans for pain control and outpatient follow-up with her own neurosurgeon at [place]. However now patient is having urinary retention and unable to get out of bed a couple hours after working with physical therapy. MRI ordered. Baclofen ordered for muscle spasms. (5) Leukocytosis: Code(s): D72.829 - Elevated white blood cell count, unspecified Status: Acute Assessment and Plan: No obvious signs infection at this time, might be rising due to steroids. Blood cultures in process, ordered UA/Urine culture too. 07/29: White blood cell count continues to rise. Repeat blood cultures drawn. Chest x-ray negative. UA unremarkable. start IV antibiotics and obtain lumbar puncture. 07/30: Lumbar puncture cancelled as above. (6) Type 2 diabetes mellitus with hyperglycemia: Code(s): E11.65 - Type 2 diabetes mellitus with hyperglycemia Status: Acute Assessment and Plan: Blood sugars have been elevated and A1c is up to 10.7, ordered additional IV fluids. (7) Hypertension: Code(s): I10 - Essential (primary) hypertension Status: Acute Assessment and Plan: Blood pressure elevated arrival after initiation medicines. (8) Tobacco dependence: Code(s): F17.200 - Nicotine dependence, unspecified, uncomplicated Status: Acute Assessment and Plan: Smoking cessation discussed. Time Spent With Patient Time with patient: 25 - 35 minutes Subjective Date/time seen: 07/30/23 08:50 Interval history: Patient awake, alert and oriented. No residual confusion or altered level of consciousness noted. Patient very angry when I explained her episode of altered consciousness yesterday. Patient tested positive for benzodiazepines which should not have been in her system as she had been in the hospital for a couple days and no benzodiazepines given or prescribed. Patient stated her stepson gave her a pill but then stated it must have been on his hands because he is a druggie. Patient became more upset when we informed her that she would
[2023-07-30 11:24] LABS: Glucose Point of Care 242 mg/dl (65-105)
[2023-07-30 14:00] VITALS: BP 163/91; PULSE 105; RESP 16; TEMP 35.6; O2SAT 96
[2023-07-30 16:36] LABS: Glucose Point of Care 401 mg/dl (65-105)
--- NOTE | 2023-07-30 17:57 | PC.NURSE ---
Offered Nocotine patch patient refused
[2023-07-30 20:49] VITALS: BP 120/51; PULSE 86; RESP 15; TEMP 36.8; O2SAT 96
[2023-07-30 21:12] LABS: Glucose Point of Care 321 mg/dl (65-105)
[2023-07-30] MEDS: CYCLOBENZAPRINE HCL 5 MG TABLET PO (21:30)
[2023-07-30] MEDS: PANTOPRAZOLE 40 MG TABLET PO (21:30)
[2023-07-30] MEDS: AMITRIPTYLINE HCL 25 MG TABLET PO (21:30)
[2023-07-30] MEDS: INSULIN GLARGINE (*BKC) 100 UNITS/ML 10 UNITS SUB-Q (21:32)
[2023-07-31] MEDS: ACETAMINOPHEN 500 MG TABLET 1000 MG PO ×4 (03:34→21:20)
[2023-07-31] MEDS: IBUPROFEN 600 MG TABLET PO ×2 (03:34→09:31)
[2023-07-31] MEDS: CYCLOBENZAPRINE HCL 5 MG TABLET PO ×3 (05:23→21:20)
[2023-07-31] MEDS: GABAPENTIN 300 MG CAPSULE PO ×3 (05:23→21:20)
[2023-07-31 05:42] VITALS: BP 134/59; PULSE 76; RESP 15; TEMP 36.6; O2SAT 96
[2023-07-31 06:57] LABS: Basophils Percent Auto 0.1 % (0.2-1.2); Eosinophils Percent Auto 0.1 % (0-4.4); Hemoglobin 13.1 g/dL (12.0-15.0); Immature Granulocyte Absolute 0.05 K/mm3 (0.00-0.031); Immature Granulocyte Percent A 0.3 % (0-0.5); Lymphocytes Absolute Auto 4.82 K/mm3 (0.9-3.2); Lymphocytes Percent Auto 32.1 % (18.3-44.2); Mean Corpuscular HGB Conc 33.6 g/dl (32-36); Mean Corpuscular Hemoglobin 32.3 pg (26-34); Mean Corpuscular Volume 96.3 fl (80-100); Mean Platelet Volume 12.1 fl (7.4-10.4); Monocytes Absolute Auto 1.2 K/mm3 (0.1-0.6); Monocytes Percent Auto 8.2 % (2.6-8.5); Neutrophils Absolute Auto 8.9 K/mm3 (1.3-6.7); Neutrophils Percent Auto 59.2 % (45.5-73.1); Platelet Count Result 161 k/mm3 (150-375); Red Blood Count 4.05 M/mm3 (4.2-5.4); Red Cell Distribution Width 13.5 % (11.5-14.5)
[2023-07-31 07:15] LABS: Alanine Aminotransferase 31 U/L (6-35); Albumin Level 3.1 g/dL (3.5-5.1); Alkaline Phosphatase 131 U/L (38-126); Anion Gap 1 mmol/L (8-16); Aspartate Amino Transferase 26 U/L (14-36); Bilirubin,Total 0.6 mg/dL (0.2-1.3); Blood Urea Nitrogen 26 mg/dL (7-17); Calcium 8.7 mg/dL (8.4-10.2); Carbon Dioxide 26 mmol/L (22-30); Chloride 107 mmol/L (98-107); Estimated CRCL calculation 67 ml/min; Estimated Glomerular Filt Rate > 60; Glucose 163 mg/dL (65-110); Magnesium 2.1 mg/dL (1.6-2.3); Potassium 3.4 mmol/L (3.4-5.0); Sodium 134 mmol/L (137-145)
[2023-07-31 07:24] LABS: Anisocytosis 1+ (NORMAL); Platelet Estimate Adequate (Adequate); Schistocytes None Seen (NORMAL); Smudge Cells PRESENT
[2023-07-31 07:40] LABS: Glucose Point of Care 160 mg/dl (65-105)
[2023-07-31] MEDS: INSULIN ASPART (*BKC) 100 UNITS/ML SUB-Q ×5 (09:29→21:21)
[2023-07-31] MEDS: hydroCHLOROthiazide 25 MG TABLET PO (09:30)
[2023-07-31] MEDS: predniSONE 20 MG TABLET 60 MG PO (09:30)
[2023-07-31] MEDS: ATORVASTATIN 40 MG TABLET PO (09:31)
[2023-07-31] MEDS: PANTOPRAZOLE 40 MG TABLET PO ×2 (09:31→21:20)
[2023-07-31] MEDS: GLIMEPIRIDE 2 MG TABLET 4 MG PO ×2 (09:31→18:14)
[2023-07-31] MEDS: ursodioL 300 MG CAPSULE PO (09:31)
[2023-07-31] MEDS: DICLOFENAC SOD 75 MG TABLET.EC PO ×2 (09:31→21:20)
[2023-07-31] MEDS: lisinopriL 20 MG TABLET PO (09:31)
[2023-07-31] MEDS: ESCITALOPRAM OXALATE 10 MG TABLET 20 MG PO (09:31)
[2023-07-31] MEDS: metFORMIN HCL 500 MG TABLET PO ×2 (09:31→18:14)
[2023-07-31] MEDS: amLODIPine BESYLATE 5 MG TABLET PO (09:32)
[2023-07-31 11:20] LABS: Glucose Point of Care 180 mg/dl (65-105)
--- NOTE | 2023-07-31 11:50 | PCOTNOTE ---
Attempted to see patient this A.M. Patient declined, stated she is busy with phone calls figureing out her plan for discharge. Patient requested to be checked on at a later time this afternoon.
--- NOTE | 2023-07-31 12:54 | PM.IMPN ---
Progress Note: A&P Assessment and Plan (1) Altered mental status: Code(s): R41.82 - Altered mental status, unspecified Status: Acute Assessment and Plan: 07/29: Episode of confusion and disorientation that progressed to unconscious state throughout the day. Patient did respond to painful stimuli. She also began to respond to administration Narcan. CT of the head shoiwng no acute findings. CTA head/neck showing no acute findings. She admits to taking benzo brought in by family MRI and Lumbar Puncture cancelled. (2) Accidental overdose: Code(s): T50.901A - Poisoning by unspecified drugs, medicaments and biological substances, accidental (unintentional), initial encounter Status: Acute Assessment and Plan: As above (3) Intractable back pain: Code(s): M54.9 - Dorsalgia, unspecified Status: Acute Assessment and Plan: Known bulging disc with right leg radicular pain with acute flare. MRI showing severe lumbar and lower thoracic spondylosis with significant interval progression at L2-L3 including increase in a large disc extrusion contributing to severe central canal stenosis and severe bilateral neural foraminal stenosis at this level. Currently on Prednisoe, scheduled Ibuprofen, scheduled Tyelnol and scheduled Voltaren. Also on Gabapentin and Elavil. Flexeril added yesterday. Pain better controlled. PPI for gastric protection Apprecaited neurosurgery input. PT/OT ordered. (4) Sciatica of right side associated with disorder of lumbar spine: Code(s): M53.86 - Other specified dorsopathies, lumbar region Status: Acute Assessment and Plan: As above (5) Leukocytosis: Code(s): D72.829 - Elevated white blood cell count, unspecified Status: Acute Assessment and Plan: WBC elevated felt realted to steroids. No obvious signs infection at this time Follow (6) Type 2 diabetes mellitus with hyperglycemia: Code(s): E11.65 - Type 2 diabetes mellitus with hyperglycemia Status: Acute Assessment and Plan: A1c 10.7. The patient's blood glucose was reviewed on 07/31 Glucose better controlled. Continue AccuCheks covering with sliding scale. Hypoglycemia protocol available as needed. Continue to monitor (7) Hypertension: Code(s): I10 - Essential (primary) hypertension Status: Acute Assessment and Plan: Patient's blood pressure was reviewed on 07/31 Blood pressure remains reasonably well controlled. Will continue current medications. (8) Tobacco dependence: Code(s): F17.200 - Nicotine dependence, unspecified, uncomplicated Status: Acute Assessment and Plan: Patient was educated about benefits of smoking cessation Nicotine patch started Plan DVT prophylax -Lovenox Code status -full Subjective Date/time seen: 07/31/23 12:54 Interval history: 63yo female with CKD, DM, HTN, PSA and tobacco abuse here for back pain. Slept okay. Pain better today. No CP or SOB. No change in the right thigh numbness Exam Narrative: AF 97.9 134/59 76 15 96% ra Gen - NARD Chest - CTA bilaterally, nml RR CV - RRR S1/S2 Abd - Soft, NT/ND, Positive BS - Pfeiffer secured draining clear yellow urine Ext - No pedal edema neuro - left foot drop Psych - Nml mood and affect Skin - Warm and dry Objective Data Vital Signs Vital Signs: Vital Signs - 24 hr 07/30/23 14:00 07/30/23 20:49 07/31/23 05:42 Temperature 96.0 F L 98.3 F 97.9 F Pulse Rate 105 H 86 76 Respiratory Rate 16 15 15 Blood Pressure 163/91 H 120/51 L 134/59 L Pulse Oximetry 96 96 96 Intake/Output Intake/Output: Intake & Output 07/28/23 07/29/23 07/30/23 07/31/23 23:59 23:59 23:59 23:59 Intake Total 1657 2590 2898 240 Output Total 310 1225 2450 625 Balance 1347 1365 448 -385 Meds/Results Medications: Active Medications Generic Name Dose Route Start Last Admin Tr
[2023-07-31 14:00] VITALS: PULSE 88; RESP 18; TEMP 35.6
[2023-07-31] MEDS: IBUPROFEN 400 MG TABLET PO ×2 (15:32→21:20)
[2023-07-31 16:33] LABS: Glucose Point of Care 324 mg/dl (65-105)
[2023-07-31 20:40] LABS: Glucose Point of Care 374 mg/dl (65-105)
[2023-07-31] MEDS: AMITRIPTYLINE HCL 25 MG TABLET PO (21:20)
[2023-07-31] MEDS: INSULIN GLARGINE (*BKC) 100 UNITS/ML 10 UNITS SUB-Q (21:20)
[2023-07-31 21:51] VITALS: BP 109/57; PULSE 78; RESP 18; TEMP 36.7; O2SAT 98
[2023-07-31 22:10] VITALS: PULSE 79; O2SAT 97
[2023-07-31] MEDS: HYDROcodone/acetaminophen (*CRX) 5-325 MG TABLET 1 TAB PO (23:36)
[2023-08-01] MEDS: IBUPROFEN 400 MG TABLET PO ×3 (03:12→14:44)
[2023-08-01] MEDS: ACETAMINOPHEN 500 MG TABLET 1000 MG PO ×3 (03:13→14:44)
[2023-08-01] MEDS: GABAPENTIN 300 MG CAPSULE PO ×2 (05:11→14:44)
[2023-08-01] MEDS: CYCLOBENZAPRINE HCL 5 MG TABLET PO ×2 (05:11→14:44)
[2023-08-01 05:57] LABS: Basophils Percent Auto 0.1 % (0.2-1.2); Eosinophils Percent Auto 0.1 % (0-4.4); Immature Granulocyte Absolute 0.04 K/mm3 (0.00-0.031); Immature Granulocyte Percent A 0.3 % (0-0.5); Lymphocytes Absolute Auto 4.02 K/mm3 (0.9-3.2); Lymphocytes Percent Auto 26.5 % (18.3-44.2); Mean Corpuscular HGB Conc 32.5 g/dl (32-36); Mean Corpuscular Hemoglobin 31.6 pg (26-34); Mean Corpuscular Volume 97.3 fl (80-100); Mean Platelet Volume 12.2 fl (7.4-10.4); Monocytes Percent Auto 6.3 % (2.6-8.5); Neutrophils Absolute Auto 10.1 K/mm3 (1.3-6.7); Neutrophils Percent Auto 66.7 % (45.5-73.1); Platelet Count Result 155 k/mm3 (150-375); Red Blood Count 4.11 M/mm3 (4.2-5.4); Red Cell Distribution Width 13.2 % (11.5-14.5); White Blood Count 15.2 K/mm3 (4.5-10.0)
[2023-08-01 06:00] VITALS: BP 125/80; PULSE 68; RESP 18; TEMP 36.8; O2SAT 98
[2023-08-01 06:04] LABS: Alanine Aminotransferase 34 U/L (6-35); Albumin Level 3.2 g/dL (3.5-5.1); Alkaline Phosphatase 121 U/L (38-126); Anion Gap 2 mmol/L (8-16); Aspartate Amino Transferase 25 U/L (14-36); Bilirubin,Total 0.6 mg/dL (0.2-1.3); Blood Urea Nitrogen 29 mg/dL (7-17); Calcium 9.1 mg/dL (8.4-10.2); Carbon Dioxide 27 mmol/L (22-30); Chloride 103 mmol/L (98-107); Estimated CRCL calculation 60 ml/min; Estimated Glomerular Filt Rate > 60; Glucose 143 mg/dL (65-110); Potassium 3.5 mmol/L (3.4-5.0); Sodium 132 mmol/L (137-145)
[2023-08-01 07:21] LABS: Glucose Point of Care 139 mg/dl (65-105)
[2023-08-01] MEDS: GLIMEPIRIDE 2 MG TABLET 4 MG PO (08:44)
[2023-08-01] MEDS: metFORMIN HCL 500 MG TABLET PO (08:44)
[2023-08-01] MEDS: ATORVASTATIN 40 MG TABLET PO (08:44)
[2023-08-01] MEDS: INSULIN ASPART (*BKC) 100 UNITS/ML SUB-Q ×2 (08:44→11:52)
[2023-08-01] MEDS: amLODIPine BESYLATE 5 MG TABLET PO (08:45)
[2023-08-01] MEDS: hydroCHLOROthiazide 25 MG TABLET PO (08:45)
[2023-08-01] MEDS: ursodioL 300 MG CAPSULE PO (08:45)
[2023-08-01] MEDS: ESCITALOPRAM OXALATE 10 MG TABLET 20 MG PO (08:45)
[2023-08-01] MEDS: lisinopriL 20 MG TABLET PO (08:45)
[2023-08-01] MEDS: PANTOPRAZOLE 40 MG TABLET PO (08:45)
[2023-08-01] MEDS: predniSONE 20 MG TABLET 60 MG PO (08:45)
[2023-08-01] MEDS: DICLOFENAC SOD 75 MG TABLET.EC PO (08:53)
[2023-08-01 11:36] LABS: Glucose Point of Care 169 mg/dl (65-105)
[2023-08-01] MEDS: HYDROcodone/acetaminophen (*CRX) 5-325 MG TABLET 1 TAB PO (11:50)
[2023-08-01 13:50] VITALS: BP 140/68; PULSE 88; RESP 18; TEMP 36.4; O2SAT 96
--- NOTE | 2023-08-01 15:02 | PM.DS ---
DS: Admitting Diagnosis Discharge Date August 01, 2023 Admitting Diagnosis Low back pain DS: Discharge Diagnosis Discharge Diagnosis (1) Accidental overdose: Code(s): T50.901A - Poisoning by unspecified drugs, medicaments and biological substances, accidental (unintentional), initial encounter Status: Acute (2) Altered mental status: Code(s): R41.82 - Altered mental status, unspecified Status: Acute (3) Tobacco dependence: Code(s): F17.200 - Nicotine dependence, unspecified, uncomplicated Status: Acute (4) Leukocytosis: Code(s): D72.829 - Elevated white blood cell count, unspecified Status: Acute (5) Intractable back pain: Code(s): M54.9 - Dorsalgia, unspecified Status: Acute (6) Lumbar spinal stenosis due to adjacent segment disease after fusion procedure: Code(s): M48.061 - Spinal stenosis, lumbar region without neurogenic claudication; M51.36 - Other intervertebral disc degeneration, lumbar region Status: Acute DS: Summary Hospital Course Hospital Course: This is a 63-year-old female with a past medical history low back pain, degenerative spondylosis with prior L3-L5 fusion done by Dr. Santos at [facility] in [place] in 2016, diabetic neuropathy, chronic left footdrop, chronic active smoker, chronic kidney disease, hypertension, hyperlipidemia, diabetes mellitus type 2 who presented with right hip and back pain. Lumbar spine MRI performed demonstrating the followin. Severe lumbar and lower thoracic spondylosis with significant interval progression at L2-L3 including increase in a large disc extrusion contributing to severe central canal stenosis and severe bilateral neural foraminal stenosis at this level. 2. Stable appearance of postoperative change and lower lumbar spine including combined instrumented L4-S1 anterior and posterior spinal fusion with L5 and S1 laminectomies. Neurosurgery consulted and the patient is galloway to follow-up with her surgeon Dr. Santos. The patient was advised to have home health but she denied. She is discharged to home on 08/01 with relatively better pain control in stable condition. The patient had taken a benzodiazepine brought by the family and she developed altered mental status which eventually resolved. CT head was negative for any acute intracranial process. Subsequently the patient is advised not to take narcotics or sedatives.. She has been significantly counseled about the risk of doing so. Because of this, she is only discharged on new prescription of baclofen. She has received 5 days of prednisone so that will be stopped. Repeat CBCD in 3 days to assess for resolution of leukocytosis which thought to be secondary to prednisone use. Time Spent with Patient Time attestation: Total time spent providing and/or coordinating discharge services: Exam Const: General: cooperative and no acute distress Resp: Effort & Inspection: normal respiratory effort Auscultation: clear to auscultation bilaterally Cardio: Rate: regular rate Rhythm: regular rhythm Heart sounds: S1 normal heart sound present and S2 normal heart sound present GI: GI Palp: No abdominal tenderness Auscultation: normal bowel sounds DS: Data Data Completed and Pending Labs on day of discharge: Labs from last 24 hours 08/01/23 08/01/23 08/01/23 11:31 07:15 05:18 WBC 15.2 H RBC 4.11 L Hgb 13.0 Hct 40.0 MCV 97.3 MCH 31.6 MCHC 32.5 RDW 13.2 Plt Count 155 MPV 12.2 H Immature Gran % (Auto) 0.3 Neut % (Auto) 66.7 Lymph % (Auto) 26.5 [place] % (Auto) 6.3 Eos % (Auto) 0.1 Baso % (Auto) 0.1 L Lymph # (Auto) 4.02 H [place] # (Auto) 1.0 H Eos # (Auto) 0.0 Baso # (Auto) 0.0 Abs Immat Gran (auto) 0.04 H Absolute Neuts (auto) 10.1 H Absolute Nucleated RBC 0.0 Nucleated RBC % 0.0 Sodium 132 L Potassium 3.5 Chloride 103 Carbon Dioxide 27 Ani
== END 2023-08-01 15:20 | disposition home or self-care (01) | DRG 552 ==
LOC: ANHED 15:04 → ANH3MEDSUR 15:48
PROVIDERS: Nurse Practitioner; Physician Assistant; Admitting Provider Hospitalist; Emergency Provider Physician Assistant; PCP Physician Assistant; Visit Provider General Practice
DX: M47.816 Spondylosis without myelopathy or radiculopathy, lumbar region (principal); M48.061 Spinal stenosis, lumbar region without neurogenic claudication; T42.4X1A Poisoning by benzodiazepines, accidental (unintentional), initial encounter; E11.42 Type 2 diabetes mellitus with diabetic polyneuropathy; E11.22 Type 2 diabetes mellitus with diabetic chronic kidney disease; I12.9 Hypertensive chronic kidney disease with stage 1 through stage 4 chronic kidney disease, or unspecified chronic kidney disease; N18.2 Chronic kidney disease, stage 2 (mild); E11.65 Type 2 diabetes mellitus with hyperglycemia; R33.8 Other retention of urine; Z98.1 Arthrodesis status; M21.372 Foot drop, left foot; E78.5 Hyperlipidemia, unspecified; F32.9 Major depressive disorder, single episode, unspecified; G47.33 Obstructive sleep apnea (adult) (pediatric); K75.81 Nonalcoholic steatohepatitis (NASH); F17.210 Nicotine dependence, cigarettes, uncomplicated; E66.9 Obesity, unspecified; Z68.36 Body mass index [BMI] 36.0-36.9, adult
CPT/HCPCS: 36415; 70450; 70496; 70498; 71045; 72131; 72148; 80048; 80053; 80307; 81001; 82010; 82140; 82607; 82746; 82803; 82948; 83036; 83605; 83735; 84145; 85025; 85027; 85652; 86140; 87040; 87641; 96361; 96374; 96375; 96376; 97110; 97116; 97161; 97165; 97530; 97535; 99285; A9270; G0378; J0696; J1815; J1885; J2270; J2310; J2930; J3360; J3370; J7030; J7040; J7512; Q9967

== ENCOUNTER 2023-08-27 03:10 | Emergency (ER) | payer BC, SELFPAY ==
[2023-08-27] VITALS (18 sets, daily range): BP systolic 143–198; BP diastolic 68–95; PULSE 79–96; RESP 8–16; TEMP 36.4; O2SAT 93–98
--- NOTE | ~2023-08-27 | CT_ITS ---
Noncontrast CT scan of the lumbar spine CLINICAL HISTORY: Back pain TECHNIQUE: Axial noncontrast imaging of the lumbar spine was performed. Sagittal and coronal reformat tana images were constructed. Dose reduction technique was used on this scan by utilizing automated ex posure control and iterative reconstruction technique. The dose-length product (DLP) was 1221.45 mGy- cm. COMPARISON: 07/27/2023 FINDINGS: No acute fracture or subluxation seen. Osseous alignment is unchanged from prior exam. Ther e is posterior fusion hardware from L3 through L5, bilateral rods and transpedicular screws present. Stable 5 mm anterolisthesis of L4 over L5. Stable laminectomy of L4 and L5. At L1-L2, there is severe degenerative disc disease. Disc bulge and facet arthropathy result in moder ate to possibly severe central canal stenosis. There is stable large left paracentral osteophyte or o ssified disc fragment posterior to the L1 vertebral body, resulting in severe canal stenosis at the L 1 level. There is severe bilateral neural foraminal narrowing at L1-L2, right worse than left. At L2-L3, there is advanced degenerative disc narrowing. Disc bulge and severe facet arthropathy/liga ment flavum ossification also in severe spinal canal stenosis/thecal sac compression. There is severe bilateral neural foraminal narrowing. L3-L4, there is no definite canal stenosis, with posterior decompression. There is probable moderate bilateral neural foraminal narrowing. At L4-L5, there is posterior decompression without definite spinal canal stenosis. There is severe bi lateral neural foraminal narrowing. L5-S1, there is no definite central canal stenosis. There is mild left neural foraminal narrowing. Ri ght neural foramen preserved. Paravertebral soft tissues otherwise are unremarkable. Impression: Stable posterior fusion from L3 through L5, with laminectomies of L4 and L5. Stable underlying 5 mm a nterolisthesis of L4 over L5. Severe degenerative spondylosis, as detailed above, especially at L1-L2 and L2-L3. Reviewed, dictated and finalized at location . Impression: Stable posterior fusion from L3 through L5, with laminectomies of L4 and L5. St able underlying 5 mm anterolisthesis of L4 over L5. Severe degenerative spondylosis, as detailed above, especially at L1-L2 and L2- L3.
--- NOTE | ~2023-08-27 | XR_ITS ---
Right Knee Technique: AP, lateral, and oblique views were obtained. Clinical History: Pain Findings: No fracture or dislocation is seen. Osseous alignment is anatomic. Joint spaces are preserv ed without degenerative or erosive change. Soft tissues are unremarkable. No joint effusion is seen. Impression: Unremarkable right knee radiographs. Reviewed, dictated and finalized at [facility]. Impression: Unremarkable right knee radiographs.
--- NOTE | ~2023-08-27 | XR_ITS ---
Left Knee Technique: AP, lateral, and oblique views were obtained. Clinical History: Pain Findings: No fracture or dislocation is seen. Osseous alignment is anatomic. Joint spaces are preserv ed without degenerative or erosive change. Soft tissues are unremarkable. No joint effusion is seen. Impression: Unremarkable left knee radiographs. Reviewed, dictated and finalized at [facility]. Impression: Unremarkable left knee radiographs.
--- NOTE | 2023-08-27 03:27 | PC.NURSE ---
Patient called out to nurse that she is in pain and would like something for pain. Notified EDP Dr. Cueto.
[2023-08-27] MEDS: dexAMETHasone SOD PHOS INJ 10 MG/ML 1 ML VIAL IV PUSH (03:59)
[2023-08-27] MEDS: KETOROLAC 15 MG/ML VIAL (*BKC) IV PUSH (03:59)
[2023-08-27] MEDS: HYDROmorphone HCL INJ (*CRX) 1 MG/ML SYR IV PUSH ×3 (04:01→09:39)
[2023-08-27 04:18] LABS: Basophils Absolute Auto 0.1 K/mm3 (0.0-0.1); Basophils Percent Auto 0.5 % (0.2-1.2); Eosinophils Absolute Auto 0.1 K/mm3 (0-0.3); Eosinophils Percent Auto 1.3 % (0-4.4); Hematocrit 44.4 % (37.0-47.0); Hemoglobin 14.3 g/dL (12.0-15.0); Immature Granulocyte Absolute 0.03 K/mm3 (0.00-0.031); Immature Granulocyte Percent A 0.3 % (0-0.5); Lymphocytes Absolute Auto 3.59 K/mm3 (0.9-3.2); Lymphocytes Percent Auto 33.8 % (18.3-44.2); Mean Corpuscular HGB Conc 32.2 g/dl (32-36); Mean Corpuscular Hemoglobin 31.8 pg (26-34); Mean Corpuscular Volume 98.7 fl (80-100); Mean Platelet Volume 10.9 fl (7.4-10.4); Monocytes Absolute Auto 0.9 K/mm3 (0.1-0.6); Monocytes Percent Auto 8.5 % (2.6-8.5); Neutrophils Absolute Auto 5.9 K/mm3 (1.3-6.7); Neutrophils Percent Auto 55.6 % (45.5-73.1); Platelet Count Result 241 k/mm3 (150-375); Red Cell Distribution Width 13.8 % (11.5-14.5); White Blood Count 10.6 K/mm3 (4.5-10.0)
--- NOTE | 2023-08-27 04:19 | ED.GENADULT ---
HPI - General Adult General Chief complaint: Back Pain/Injury Stated complaint: low back pain Time Seen by Provider: 08/27/23 03:38 History of Present Illness HPI narrative: Patient is 63-year-old female who presents emergency department with chief complaint of leg pain. Patient reports that she has history of sciatica and chronic back issues patient states that she has had numbness down the right lower extremity for several months and reports that she fell recently and since then has been having worsening pain. Patient reports that she is now having difficulty ambulating secondary to pain the patient denies loss of bowel or bladder function. Related Data Home Medications Medication Instructions Recorded Confirmed amlodipine 5 mg tablet 5 mg PO DAILY 07/25/22 08/14/23 atorvastatin 40 mg tablet 40 mg PO DAILY 07/25/22 08/14/23 diclofenac sodium 75 mg 75 mg PO BID 07/25/22 08/14/23 tablet,delayed release escitalopram oxalate 20 mg tablet 20 mg PO DAILY 07/25/22 08/14/23 lisinopril 20 1 tablet PO DAILY 07/25/22 08/14/23 mg-hydrochlorothiazide 25 mg tablet pen needle, diabetic 32 gauge x #50 ea 07/25/22 08/14/23/32 (BD Zuleyma 2nd Gen Pen Needle) glimepiride 4 mg tablet 4 mg PO BID 07/27/23 08/14/23 ursodiol 250 mg tablet 250 mg PO BID 08/14/23 08/14/23 Allergies Allergy/AdvReac Type Severity Reaction Status Date / Time cefprozil Allergy Intermediate HIVES Verified 08/14/23 09:45 cephalexin Allergy Intermediate HIVES Verified 08/14/23 09:45 latex Allergy Intermediate BLISTERS Verified 08/14/23 09:45 Review of Systems Review of Systems: A 10 system review of systems was completed on the patient and is negative except for what is stated in the HPI. Nursing and ancillary documentation was reviewed. [facility] Past Medical History Medical History Chronic kidney disease, stage 2 (mild) Hyperlipidemia, unspecified Hypertensive chronic kidney disease with stage 1 through stage 4 chronic kidney disease, or unspecified chronic kidney disease Major depressive disorder, recurrent, unspecified Nonalcoholic steatohepatitis (BLACK) Obstructive sleep apnea (adult) (pediatric) Tobacco dependence Type 2 diabetes mellitus with diabetic neuropathy, unspecified Surgical History Surgical History History of cataract surgery Left- 04/08/2007 Right- 05/06/2007 History of section (12/1989) History of hysteroscopy (06/05/16) History of laser assisted in situ keratomileusis (2005) History of lumbar fusion (03/02/15) L3-L5. Family History Family History Father History of melanoma Grandparent Cerebrovascular accident Dementia Social History Social History Social History: Surrogate medical decision maker: Bhaskar Peres Sr., spouse. Code status: Full code. Smoking packs per day: 1 Smoking cigarettes per day: 20.0 Years smoked: 40 Smoking pack-years: 40.00 Smoking status: Current every day smoker Tobacco type: cigarettes Second hand tobacco smoke exposure: Yes Alcohol intake: never Alcohol use details: Rare alcohol use in moderation. Substance use: never Substance use type: does not use Do You Feel Safe in your Home?: Yes Lack of Transportation: No Lack of Food: Never True Current Housing: I Have Housing Concerned About Future Housing: No Difficulty Paying Gas/Electric Bills: No Difficulty Paying for Meds: No Currently Unemployed: No Education: Don't Know Difficulty w/ Childcare or Family Care: No Living arrangements: with family Additional living arrangements comments: Lives with spouse in [place]. Occupation/Education: occupation Additional occupation/education comments: Works for [employer].
[2023-08-27 04:40] LABS: Alanine Aminotransferase 24 U/L (6-35); Albumin Level 3.9 g/dL (3.5-5.1); Alkaline Phosphatase 191 U/L (38-126); Anion Gap 2 mmol/L (8-16); Aspartate Amino Transferase 28 U/L (14-36); Bilirubin,Total 0.6 mg/dL (0.2-1.3); Blood Urea Nitrogen 10 mg/dL (7-17); Calcium 9.4 mg/dL (8.4-10.2); Carbon Dioxide 34 mmol/L (22-30); Chloride 102 mmol/L (98-107); Estimated CRCL calculation 102 ml/min; Estimated Glomerular Filt Rate > 60; Glucose 114 mg/dL (65-110); Potassium 3.2 mmol/L (3.4-5.0); Sodium 138 mmol/L (137-145)
--- NOTE | 2023-08-27 05:21 | PC.NURSE ---
Patient states she is feeling nauseous. Notified EDP Dr. Cueto who VRBO 4mg Zofran IVP.
[2023-08-27] MEDS: ONDANSETRON INJ 4 MG/2 ML VIAL IV PUSH (05:24)
--- NOTE | 2023-08-27 06:31 | PC.NURSE ---
Nursing staff attempted to walk with patient while she was utilizing a walker. Patient made it roughly 3 feet from the bed and stated she did not feel stable and she wanted to go back to the bed. Patient then stated that she does not feel safe going home like this and that the only person that she has at home is her spouse who is on oxygen and would not be able to help her. EDP Dr. Cueto notified.
== END 2023-08-27 11:00 | disposition short-term general hospital (02) ==
PROVIDERS: Emergency Provider Emergency Medicine; PCP Family Medicine
DX: M54.50 Low back pain, unspecified (principal); I12.9 Hypertensive chronic kidney disease with stage 1 through stage 4 chronic kidney disease, or unspecified chronic kidney disease; E11.22 Type 2 diabetes mellitus with diabetic chronic kidney disease; N18.2 Chronic kidney disease, stage 2 (mild); E11.42 Type 2 diabetes mellitus with diabetic polyneuropathy; E78.5 Hyperlipidemia, unspecified; G47.33 Obstructive sleep apnea (adult) (pediatric); K75.81 Nonalcoholic steatohepatitis (NASH); F33.9 Major depressive disorder, recurrent, unspecified; F17.210 Nicotine dependence, cigarettes, uncomplicated; Z98.1 Arthrodesis status; Z98.42 Cataract extraction status, left eye; Z98.41 Cataract extraction status, right eye; Z79.84 Long term (current) use of oral hypoglycemic drugs
CPT/HCPCS: 36415; 72131; 73562; 80053; 85025; 96374; 96375; 96376; 99285; J1100; J1170; J1885; J2405

== ENCOUNTER 2024-01-18 07:34 | Outpatient (RCR) | payer BC, SELFPAY ==
[2023-10-25 14:40] VITALS: BMI 35.5
== END 2024-01-23 23:59 | disposition home or self-care (01) ==
LOC: ANHWOC 07:34
PROVIDERS: PCP Family Medicine; Visit Provider Physician Assistant
DX: R23.8 Other skin changes (principal)
CPT/HCPCS: 99213; 99214; 99215; A9270; G0463

== ENCOUNTER 2024-02-25 08:40 | Outpatient (RCR) | payer BC, SELFPAY ==
[2024-01-24 00:04] VITALS: BMI 35.5
== END 2024-02-26 07:18 | disposition home or self-care (01) ==
LOC: ANHWOC 08:40
PROVIDERS: PCP Family Medicine; Visit Provider Physician Assistant
DX: L97.519 Non-pressure chronic ulcer of other part of right foot with unspecified severity (principal); I87.2 Venous insufficiency (chronic) (peripheral); R23.8 Other skin changes
CPT/HCPCS: 99213; G0463

== ENCOUNTER 2024-12-08 10:59 | Outpatient (CLI) | payer BC, SELFPAY ==
--- NOTE | ~2024-12-08 | CT_ITS ---
Non-contrast CT scan of the Abdomen and Pelvis Clinical indication: Intra-abdominal swelling Technique: 2.5 mm axial scans were obtained through the abdomen and pelvis without intravenous or or al contrast. Dose reduction technique was used on this scan by utilizing automated exposure control a nd iterative reconstruction technique. The dose-length product (DLP) was 1151.39 mGy-cm. Findings: Images through the lung bases reveal no abnormalities. There is no evidence of renal or ureteral calculi. The kidneys and the ureters are nondilated. Mildly nodular contour of liver suggests cirrhotic change. The spleen, pancreas, gallbladder, and adr enals appear normal. There are extensive atherosclerotic calcifications of the aorta and iliac vessel s. . There is no evidence of bowel obstruction. Extensive stool could reflect constipation. Small fat-cont aining umbilical hernia present. Images through the pelvis were performed. There is no evidence of ascites or lymphadenopathy. Urinary bladder unremarkable. No pelvic mass seen. No ascites. Extensive spinal fixation is present. There is a large fluid collection the posterior paravertebral s oft tissues measuring approximately 5.5 x 4.2 x 8.7 cm, at the L2-L5 levels. Impression: Cirrhotic morphology of the liver. No focal hepatic mass seen. Constipation. Small fat-containing umbilical hernia. Large posterior paravertebral fluid collection at the lumbar spine region with extensive thoracolumba r spinal fixation hardware. Correlate for postoperative seroma versus possibility of abscess. Reviewed, dictated and finalized at [facility]. Impression: Cirrhotic morphology of the liver. No focal hepatic mass seen. Constipation. Small fat-containing umbilical hernia. Large posterior paravertebral fluid collection at the lumbar spine region with extensive thoracolumbar spinal fixation hardware. Correlate for postoperative s eroma versus possibility of abscess.
--- OUTSIDE RECORDS SUMMARY | 2024-12-08 11:40 | XMS_ITS ---
Author Organization [facility] Address [address] [place] [address] Care Team Providers Care Group Rooms Coordinator Name Role Phone Richard Eubanks MD Primary Care Provider Unavailab Derrek Clements Unavailable [phone] Omar Berman Unavailable Unavailable REASON FOR VISIT Paperwork Encounters Encounter Location Date Provider Diagnosis [facility] [address] [place] [address] 02/07/2024 Derrek Santos PLAN OF TREATMENT No Information
--- OUTSIDE RECORDS SUMMARY | 2024-12-08 11:41 | XMS_ITS ---
Author Organization [facility] Address [address] [place] [address] Care Team Providers Care Display And Banner Designer Name Role Phone Richard Eubanks MD Primary Care Provider Unavailab Derrek Clements Unavailable [phone] Omar Berman Unavailable Unavailable Encounters Encounter Location Date Provider Diagnosis [facility] [address] [place] [address] 05/07/2024 Derrek Santos PLAN OF TREATMENT No Information
--- OUTSIDE RECORDS SUMMARY | 2024-12-08 11:41 | XMS_ITS ---
Author Organization [facility] Address [address] [place] [address] Care Team Providers Care Dobby Loom Weaver Name Role Phone Richard Eubanks MD Primary Care Provider Unavailab Derrek Clements Unavailable [phone] Omar Berman Unavailable Unavailable REASON FOR VISIT Call back Encounters Encounter Location Date Provider Diagnosis [facility] [address] [place] [address] 05/12/2024 Derrek Santos PLAN OF TREATMENT No Information
--- OUTSIDE RECORDS SUMMARY | 2024-12-08 11:41 | XMS_ITS | Clinical Summary ---
Author Organization [facility] Address [address] [place] [address] Care Team Providers Care Funeral Director And Embalmer Name Role Phone Richard Eubanks MD Primary Care Provider [phone] Allergies Active Allergy Reactions Criticality Noted Date Comments Cefprozil Hives Medium 10/09/2023 Cephalexin Hives Medium 02/10/2014 Hives Latex Rash Medium 10/10/2023 Medications gabapentin (NEURONTIN) 300 mg capsule Take 1 capsule (300 mg total) by mouth 3 (three) times a day for 14 days 42 capsule 3 Active oxyCODONE (ROXICODONE) 5 mg immediate release tablet Take 1 tablet (5 mg total) by mouth every 4 (four) hours as needed for pain for up to 12 doses 12 tablet 4 Active Cathflo Activase 2 mg injection Administer 2 mL (2 mg total) into catheter daily as needed 4 Active aspirin 81 mg capsule Take 81 mg by mouth daily Active atorvastatin (LIPITOR) 40 mg tablet Take 1 tablet (40 mg total) by mouth daily Active diclofenac DR (VOLTAREN) 75 mg EC tablet Take 1 tablet (75 mg total) by mouth 2 (two) times a day Active escitalopram (LEXAPRO) 20 mg tablet Take 1 tablet (20 mg total) by mouth daily Active glimepiride (AMARYL) 4 mg tablet Take 1 tablet (4 mg total) by mouth 2 (two) times a day Active heparin 10 unit/mL syringe Administer 1 mL (10 Units total) into catheter daily as needed 4 Active metFORMIN (GLUCOPHAGE) 500 mg tablet Take 1 tablet (500 mg total) by mouth Active oxyCODONE-aceta minophen (PERCOCET) 5-325 mg per tablet Take 1 tablet by mouth every 4 (four) hours as needed for pain 4 Active Ozempic 1 mg/dose (4 mg/3 mL) pen injector injection Inject 2 mg under the skin once a week Active tiZANidine (ZANAFLEX) 4 mg tablet Take 1 tablet (4 mg total) by mouth every 8 (eight) hours as needed for muscle spasms 4 Active ursodioL (ELIS) 250 mg tablet Take 1 tablet (250 mg total) by mouth 2 (two) times a day Active Active Problems Problem Noted Date Diagnosed Date Cellulitis of lower extremity, unspecified later ality 10/10/2023 Dermatitis 10/10/2023 Surgical History Surgery Date Site/Laterality Comments REDUCTION MAMMAPLASTY 06/11/2001 - 06/10/2002 Bilateral Medical History Medical History Date Comments Diabetes mellitus (HCC) Social History Tobacco Use Types Packs/Day Years Used Date Smoking Tobacco: Former Cigarettes Tobacco Cessation:Counseling Given: Not Answered Personal Safety Answer Date Recorded Have you ever been in or are you currently in a harmful physical or emotional relationship or is someone making you feel afraid or unsafe? 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 Gender Identity Not on file Sexual Orientation Not on file Obstetrics History Para Term AB IAB SAB Ectopic Multiple Livin g Live Births 3 Date Outcome GA Total Labor Labor/2nd/3rd Weight Sex Type Anes PTL Margie A1 A5 Name Clin Last Filed Vital Signs Vital Sign Reading Time Taken Comments Blood Pressure 138/59 10/14/2023 2:23 PM CDT Pulse 81 10/14/2023 2:23 PM CDT Temperature 36.7 C (98 F) 10/14/2023 2:23 PM CDT Respiratory Rate 16 10/14/2023 2:23 PM CDT Oxygen Saturation 96% 10/14/2023 2:23 PM CDT Inhaled Oxygen Concentration - - Weight 95.5 kg (210 lb 9.6 oz) 10/10/2023 3:22 A M CDT Height 157.5 cm (5' 2) 10/10/2023 3:22 AM CDT Body Mass Index 38.52 10/10/2023 3:22 AM CDT Plan of Treatment Health Maintenance Due Date Last Done Comments Colon Cancer Screening-Colonoscopy 1962 Depression Screening 1962 Hepatitis B Screening 1980 Regular Well Visit/Exam 18-64 1980 Zoster Vaccine (1 of 2) 2012 Breast Cancer Screening-Mammogram 08/04/2021 08/04/2020, 07/24/2019, 07/24/2018, Additional history exists Influenza Vaccine (Season Ended) 2025 03/25/2014 DTaP/Tdap/Td Vaccine (2 - Td or Tdap) 08/15/2027 08/14/2017 Hepatitis C Screening Completed 10/10/2023 Pneumococcal vaccine <65 Aged Out No longer eligible based on patient's age to complete this topic Procedures Procedure Name Priority Date/Time Associated Diagnosis Comments HEPATITIS PANEL, ACUTE Routine 10/10/2023 9:58 PM CDT SCREENING MAMMOGRAM BILATERAL W SHAKEEL Schedule Routine, Read Routine (OP Routine) 08/04/2020 1:36 PM DESIGN ENGINEER Encounter for screening mammogram for malignant neoplasm of breast from Last 3 Months or Most Recently Relevant to Health Maintenance Results * Hepatitis panel, acute Blood (10/10/2023 9:58 PM CDT) Hep A IgM Nonreactive Nonreactive Hep B core IgM Nonreactive Nonreactive [facility] Hep C Ab Nonreactive Nonreactive [facility] Comment:Antibodies to HCV no t detected. Does NOT exclude the possibility of recent exposure to HCV. Current interpretive data was last revised on [address] HepBsAg Nonreactive Nonreactive [facility] Blood 10/10/2023 9:58 PM CDT 10/10/2023 10:13 PM CDT Dianelys Pickens MD LAB MICROBIOLOGY - GENERAL ORDERABLES Final Result [facility] Department [place] [address] * Screening Mammogram Bilateral W Shakeel (08/04/2020 1:36 PM DESIGN ENGINEER) Anatomical Region Laterality Modality Breast Bilateral Mammography Narrative 08/06/2020 11:52 AM DESIGN ENGINEER Screening Mammogram Bilateral W Shakeel: 08/04/20 Clinical: Encounter for screening mammogram for malignant neoplasm of breast. Prior Study Comparisons: Comparison was made to the prior available relevant studies at the time of interpretation. Findings: Bilateral No significant masses, malignant type calcifications, skin thickening, nipple retraction, or significant lymphadenopathy is noted in either breast. The CAD review showed no significant findings. The breasts have scattered areas of fibroglandular density. The patient will be notified of results by letter. Impression: BI-RADS ATLAS category (overall): 1 Negative There is no mammographic evidence of malignancy. Routine Screening Mammogram in 1 Yr is recommended for bilateral Overall Assessment: 1 - Negative us Self Screening Mammogram IMG MAMMO PROCEDURES Fi nal Result from Last 3 Months or Most Recently Relevant to Health [place] [address] [facility] CHOICE [facility] HMO/PPO Address: [address] [address] [place] [address] [place] [address] [employer] Advance Directives For more information, please contact: [phone] * Full Code (Latest Code Status on File) Date Activated Date Inactivated Comments 10/10/2023 2:56 AM 10/14/2023 10:56 PM Care Teams Funeral Director And Embalmer Relationship Specialty Start Date End Date Richard Eubanks MD [address] [place] [address] [place] [address] [facility] - General 07/06/17
--- OUTSIDE RECORDS SUMMARY | 2024-12-08 11:41 | XMS_ITS | Data Portability ---
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 We talked about treatment options today she is going to continue with diclofenac avoid other anti-inflammatory medication. She did want a shot of cortisone therefore under sterile conditions I injected the patient's left knee joint in the office today with 4 cc 0.5% bupivacaine and 20 mg of Kenalog. Patient tolerated procedure well. I will see her back in 6 weeks if necessary for recheck hopefully she will get another good long-term relief from this shot as well she voiced understanding agrees above plan she will call for any further problems difficulties or questions. [email or web address] Not available 05/18/2023 11:12:14 Plan of Treatment Reminders Order Date Submit Date Provider Last Modified By Organization Details Last Modified Time Details Appointments None recorded. Lab None recorded. Referral None recorded. Procedures injection/a spiration joint/bursa (PROC) 2022 023 [email or web address] In-Office Order, Internal Use Only DO Not Attach Compendium DO Not Attach Compendium, Do Not Delete/merge, [id number] 11:08:22 Surgeries None recorded. Imaging XR, knee 2022 023 [email or web address] [facility], [address], [address], 3 12:23:27 Medication Orders bupivacaine HCl 0.5 % (5 mg/mL) injection solution 2022 023 [email or web address] [id number], [address], [place], [place], [phone], 3 12:23:27 Kenalog 10 mg/mL suspension for injection 2022 023 [email or web address] [facility] #[id number], [address] , [place], [place], [phone], 3 12:23:27 Patient TargetsNo targets recorded. Patient InstructionsNo instructions recorded. Reason for Referral None Reported. Results Created Date Observation Date Name Description Value Unit Range Abnormal Flag Note LastModifiedBy Organization Detail LastModifiedTime 10/14/19 22 XR, knee, 3 view No observ ation record ed. [id number] [facility] [place] [address], [address], 08/09/2022 14:13:02 05/18/20 23 XR, knee No observ ation record ed. [email or web address] [facility] [address] [place], [address], 05/18/2023 11:13:34 Result Notes None recorded. Problems Name Problem SNOMED Code Status Onset Date Resolution Date Notes Provider Name and Address Organization Details Recorded Time Osteoarthr itis of right acromiocla vicular joint 3465940918328 104 Active 2019 Not Available [facility] 3 14:10:52 Chondromal acia of left knee 7862072695637 9102 Active 2021 Not Available [facility] 3 14:10:53 Morbid obesity 646181352 Active 2019 Not Available [facility] 3 14:10:53 Osteoarthr itis of left knee joint 9580467712855 09 Active 2021 Not Available [facility] 3 14:10:53 Diabetes mellitus 91495422 Active 2019 Not Available [facility] 3 14:10:53 Pain of left knee joint 3236760852894 07 Active 2022 CLAUDIO Villatoro [place] [facility] 3 10:44:14 Problem Notes None recorded. Procedures Surgical History Date Name Laterality Status Provider Name and Address Organization Details Recorded Time section completed Farnaz Zabala [facility] [place] [facility] 05/18/2023 10:43:38 Back Surgeries completed Farnaz rooney [facility] [place] [facility] 05/18/2023 10:43:21 Imaging Results None recorded. Procedure Notes None recorded. Medical Equipment None Reported. Allergies Allergen ID Allergen Name Allergen Category Reaction Reaction Severity Criticality Documentation Date Start Date Code Code System Note Provider Name and Address Organization Details Recorded Time 94421 Keflex medicatio n hives Not available Not available 08/09/202267765 7 RxNorm Not Available [facility] 3 14:12:59 Medications Name Sig Start Date Stop Date Status Note LastModified by Organization Details LastModified Time cyclobenzap rine 10 mg tablet TAKE ONE TABLET BY MOUTH EVERY NIGHT AT BEDTIME NEEDED 05/18 completed Not Available Not Available Not Available atorvastati n 40 mg tablet TAKE 1 TABLET BY MOUTH EVERY DAY active Not Available Not Available No t Available metformin 500 mg tablet TAKE 1 TABLET BY MOUTH TWICE DAILY WITH A MEAL active Not Available Not Available No t Available prednisone 10 mg tablet 05/18 completed Not Available Not Available Not Available doxycycline hyclate 100 mg capsule TAKE 1 CAPSULE BY MOUTH TWICE DAILY FOR 7 DAYS 05/18 completed Not Available Not Available Not Available clarithromy maisha 500 mg tablet TAKE 1 TABLET BY MOUTH EVERY 12 HOURS FOR 10 DAYS 10/13 completed Not Available Not Available Not Available bupivacaine HCl 0.5 % (5 mg/mL) injection solution Take 20 mg by injection route. 2022 active Not Available Not Available Not Avai lable gabapentin 400 mg capsule TAKE 1 CAPSULE BY MOUTH EVERY DAY AT BEDTIME 05/18 completed Not Available Not Available Not Available acetaminoph en 300 mg-codeine 30 mg tablet TAKE 1 TABLET BY MOUTH EVERY 6 HOURS FOR 7 DAYS NEEDED FOR PAIN active Not Available Not Available No t Available amlodipine 5 mg tablet TAKE 1 TABLET BY MOUTH EVERY DAY active Not Available Not Available No t Available prednisone 10 mg tablets in a dose pack Take 1 tab by mouth, 3 times a day for 3 daysTake 1 tab by mouth 2 times a day for 2 daysTake 1 tab by mouth once a day for 1 day 05/18 completed Not Available Not Available Not Available amitriptyli ne 25 mg tablet TAKE 1 TABLET BY MOUTH EVERY DAY AT BEDTIME 05/18 completed Not Available Not Available Not Available Kenalog 10 mg/mL suspension for injection Take 20 mg by injection route. 2022 active [facility]: 0003- 0494- 20 Not Available Not Available Not Available doxycycline monohydrate 100 mg capsule TAKE 1 CAPSULE BY MOUTH TWICE DAILY FOR 10 DAYS 10/13 completed Not Available Not Available Not Available triamcinolo ne acetonide 0.1 % topical ointment APPLY TOPICALLY TWICE DAILY NEEDED 05/18 completed Not Available Not Available Not Available glimepiride 4 mg tablet TAKE 1 TABLET BY MOUTH TWICE DAILY active Not Available Not Available No t Available ursodiol 250 mg tablet TAKE 1 TABLET BY MOUTH TWICE DAILY active Not Available Not Available No t Available lisinopril 20 mg-hydrochl orothiazide 25 mg tablet TAKE 1 TABLET BY MOUTH EVERY DAY active Not Available Not Available No t Available diclofenac sodium 75 mg tablet,silviano yed release TAKE 1 TABLET BY MOUTH TWICE DAILY active Not Available Not Available No t Available levofloxaci n 500 mg tablet TAKE 1 TABLET BY MOUTH DAILY FOR 10 DAYS 05/18 completed Not Available Not Available Not Available amoxicillin 875 mg-potassiu m clavulanate 125 mg tablet TAKE 1 TABLET BY MOUTH TWICE DAILY FOR 10 DAYS 05/18 completed Not Available Not Available Not Available escitalopra m 20 mg tablet TAKE 1 TABLET BY MOUTH EVERY DAY active Not Available Not Available No t Available vitamin B complex 05/18 completed Not Available Not Available Not Available lidocaine (PF) 10 mg/mL (1 %) injection solution In office injection administe red by the provider 10/13 completed [facility]: 0409- 4276- 17 Not Available Not Available Not Available lidocaine (PF) 5 mg/mL (0.5 %) injection solution Take 30 mg by injection route. 05/18 completed Not Available Not Available Not Available Accu-Chek Rolanda Plus test strips U D UTD active Not Available Not Available Not Available Victoza 3-Karthikeyan 0.6 mg/0.1 mL (18 mg/3 mL) subcutaneou s pen injector ADMINISTE R 1.8 MG UNDER THE SKIN DAILY 05/18 completed Not Available Not Available Not Available NovoFine Plus 32 gauge x 1/6 needle USE DAILY DIRECTED 05/18 completed Not Available Not Available Not Available BD Zuleyma 2nd Gen Pen Needle 32 gauge x 5/32 USE DAILY DIRECTED 05/18 completed Not Available Not Available Not Available Ozempic 1 mg/dose (4 mg/3 mL) subcutaneou s pen injector active Not Available Not Available Not Available aspirin 81 mg capsule Take 1 capsule every day by oral route. active Not Available Not Available No t Available Ozempic 2 mg/dose (8 mg/3 mL) subcutaneou s pen injector INJECT 2 MG UNDER THE SKIN WEEKLY 05/18 completed Not Available Not Available Not Available Vitals Date Recorded Body mass index (BMI) Body height Body weight Provider Name and Address Organization Details Last Updated DateTime 10/13/2021 40.2 kg/m2 157.48 cm 72891.32 g Not Available [facility] 08/09/2022 14:10:38 Date Recorded Body height Body mass index (BMI) Body weight Provider Name and Address Organization Details Last Updated DateTime 05/18/2023 154.94 cm 37.4 kg/m2 21653.01 g Farnaz Zabala [facility] [place] [employer] [facility] [employer] 05/18/2023 10:48:10 Social History Question Answer Notes LastModified by Organizat ion Details LastModified Time Tobacco Smoking Status Current Every Day Smoker Bethany li [facility] 05/18/2023 10:25:46 How Much Tobacco Do You Smoke? 1 PPD [id number] Information not available 08/09/2022 How Many Years Have You Smoked Tobacco? 40 [email or web address] Information not available 05/18/2023 Sex: Unknown Functional Status Question Answer Note LastModified by Organizat ion Details LastModified Time What is your level of alcohol consumption? None [id number] Information not available 08/09/2022 Mental Status None recorded. Family History Relationship Description Onset Age of this Age Resolved Age Notes LastModified by Organization Details LastModified Time Father Family history of malignant neoplasm [email or web address] Not available 2022 10:42:34 Mother Hypertensive disorder [email or web address] Not available 2022 10:42:39 Mother Heart disease [email or web address] Not available 2022 10:42:55 Unspecified Relation Diabetes mellitus [id number] Not available 08/09/2022 14:10:06 Medical History Condition Response DIABETES, TYPE Y HYPERTENSION Y Gynecological HistoryNo gynecological history recorded. Obstetrics History GPAL:G 0 P 0 0 0 0 Past Encounters Encounter ID Performer Location Encounter Start Date Encounter Closed Date Diagnosis/Indication Diagnosis SNOMED-CT Code Diagnosis ICD10 Code Diagnosis Note [id number] Juan David Quintana MD [facility] [address] [place] [address] 10/13/2021 00:00:00 10/13/2021 09:32:16 [id number] CAROL Claudio [facility] [place] [address] [place] [address] 05/18/2023 10:24:33 05/18/2023 11:10:00 Osteoarthritis of left knee joint 2335128281 10943 M17.12 Chondromal acia of left knee 1612327894 6795398 M94.262 Pain of le ft knee joint 3294744769 90762 M25.562 Health Concerns Section Related Observation LastModified by Organization Detai ls LastModified Time None Recorded Concern Status LastModified by Organization Details LastModified Time None Recorded Advance Directives Directive None Recorded Payers Insurance Date Sequence Insurance Name Policy Number Policy Prakash Covered Member ID Prakash Member ID Guarantor Name 05/24/2023 1 WILD (O) [id number] Efrain Peres [id number] Debra Peres Notes Date Note Type Note Provider Name and Address Organization Details Recorded Time 10/13/2021 text/html KneeReported bypatient.Location:le ft; anterior Quality:aching; burning; throbbing; dull Severity:moderate Duration:continuous since onset Timing:chronic; recurrent; intermittent episodes lasting: Alleviating Factors:sitting; lying down; rest; elevation; stretching Aggravating Factors:twisting; bending/squatting; weight bearing Associated Symptoms:no weakness; no numbness; no tingling; no redness; no ecchymosis; no catching/locking; no buckling; no instability; no radiation down leg; no drainage; no fever; no chills; no weight loss; no change in bowel/bladder habits;swelling;warmt h;popping/clicking;gr inding Previous PT:helped a little Not Available [facility] [employer] 10/13/2021 09:32:16 05/18/2023 text/html Patient returns we have not seen her for more than a year and a half. She is complaining of left knee pain states it is quite significant she does have a history of a footdrop on that side due to chronic back issue for many years she reports because of the way she has to walk this aggravates her knee a bit. 1-1/2 years ago she had a shot of cortisone which gave her great relief until recently the past few weeks it has been bothering her. Denies any trauma or injury no new symptoms or complaints other than recurrence of pain that was previously not present. She states she cannot stand or walk for long. She has popping and cracking behind the kneecap has trouble with squatting kneeling going up and down stairs. She states that she does take diclofenac and also takes [id number] Aleve I have advised her against this I told her to take 1 of the other as this would be contraindicated to take more than 1 particularly because she is also diabetic and has hypertension she does not want to cause any kidney function issues. She comes in today for evaluation treatment of her left knee pain as described. Denies any loss of motion no locking or catching.Past medical history sheet was reviewed and signed on intake sheet of today's date drug allergies current medications family social history previous surgical history 10 point review of systems was reviewed and discussed in detail today with the patient. CAROL Claudio [address] [facility], [facility] [address], [place], [address], [facility] 05/18/2023 11:14:01 OBGyn Episode No OBEpisode recorded.
--- OUTSIDE RECORDS SUMMARY | 2024-12-08 11:41 | XMS_ITS | Clinical Summary ---
Author Organization [facility] Address [address] [place] [address] Care Team Providers Care Christmas Tree Farmer Name Role Phone Richard Eubanks MD Primary Care Provider [phone] Source Comments [facility],non-owned Affiliates and Associated Physician Practices is amultiple site organization consisting of ambulatory clinics and hospital sitesin [place], [place], [place] and [place]. This disclosure is being madepursuant to the Care Everywhere program and may not contain all information available regarding this patient. Last updated 18.[facility] Allergies Active Allergy Reactions Criticality Noted Date Comments Adhesive Sensitivity Rash Medium 01/23/2024 Blisters with Tape with use of ETT; Dressing used with back surg Cefprozil Urticaria Medium 10/09/2023 Cephalexin Urticaria Medium 02/10/2014 Hives Latex Rash Medium 10/10/2023 Medications * Be aware that medications may not be up to date on this document. Alwaysverify current medications with the patient. ursodiol (Actigall) 250 MG tablet Take 1 (one) tablet by mouth 2 times daily 4 Active metFORMIN (Glucophage) 500 MG tablet Take 1 (one) tablet by mouth 2 times daily Active lisinopril-hyd roCHLOROthiazi de (Prinzide; Zestoretic) 20-25 MG tablet 1 tablet(s), Oral, daily, 30 tablet(s), Tablet(s), 0 4 Active Ozempic, 2 MG/DOSE, 8 MG/3ML pen ADMINISTER 2 MG UNDER THE SKIN WEEKLY 4 Active amLODIPine (Norvasc) 5 MG tablet 1 (one) tablet 4 Active glimepiride (Amaryl) 4 MG tablet Take 1 (one) tablet by mouth 2 times daily Active atorvastatin (Lipitor) 40 MG tablet Take 1 (one) tablet by mouth once daily 4 Active escitalopram (Lexapro) 20 MG tablet Take 1 (one) tablet by mouth once daily Active B Complex Vitamins (VITAMIN B COMPLEX PO) Active Aspirin 81 MG CAPS Take 1 capsule every day by oral route. Active potassium chloride ER (Klor-Con M) 20 MEQ tablet Take 1 (one) tablet by mouth once daily Active furosemide (Lasix) 20 MG tablet Take 1 (one) tablet by mouth once daily Active acetaminophen (Tylenol) 500 MG tablet Take 2 (two) tablets by mouth every 6 hours Maximum allowable Acetaminophen amount = 4 Grams (4000 mg) / 24 hours. 54 tablet 4 Active lidocaine (Lidoderm) 5 % patch Apply 1 (one) patch to skin every 24 hours Apply patch to most painful area and remove after 12 hours. May reapply a new patch 12 hours later. 15 patch 4 Active Additional Information Patient not taking.Reported on 10/07/2024 senna-docusate (Senokot-S) 8.6-50 MG tablet Take 1 (one) tablet by mouth once daily 30 tablet 4 Active gabapentin (Neurontin) 300 MG capsule Take 1 (one) capsule by mouth 3 times daily 4 Active cadexomer (Iodosorb) 0.9 % gel Apply to affected area once daily APPLY WITH EACH DRESSING CHANGE FOR ISCHEMIC WOUNDS 40 g 5 Active sulfamethoxazo le-trimethopri m (Bactrim DS; Septra DS) 800-160 MG tablet Take 1 (one) tablet by mouth 2 times daily 5 Active Active Problems Problem Noted Date Diagnosed Date ESTEPHANIA (acute kidney injury) 05/28/2024 Hyponatremia 05/28/2024 Open wound of lumbar region 05/26/2024 Sagittal plane imbalance 03/25/2024 Left foot drop 03/25/2024 Cellulitis of lower extremity 10/10/2023 Dermatitis 10/10/2023 Methicillin resistant Staphylococcus aureus infe ction 09/17/2023 Overview (01/23/2024): 09/17/2023: MRSA + aspirate Arthralgia of left knee 05/17/2023 Chondromalacia of left knee 10/13/2021 Diabetes mellitus 02/26/2020 Morbid obesity 02/26/2020 Osteoarthritis of right acromioclavicular joint 02/26/2020 Encounters Date Type Department Care Team Description 10/07/2024 9:45 AM CDT Office Visit [facility] - [facility] [address] [place] [address] [place] [address] Juan David Escamilla MD H/O spinal fusion (Primary Dx) 10/07/2024 9:41 AM CDT - 10/07/2024 11:59 PM CDT Hospital Encounter [facility] [address] [place] [address] Juan David Escamilla MD Discharge Disposition: Home or Self Care 10/07/2024 Travel 10/06/2024 Orders Only [facility] - Orthopedics [address] [place] [phone] Juan David Escamilla MD H/O spinal fusion 09/25/2024 Orders Only [facility] [address] [place] [phone] Araceli Butt RN Sagittal plane imbalance ; H/O spinal fusion 09/25/2024 Travel 09/17/2024 11:00 AM CDT Office Visit [facility] - Plastic Surgery [address] [place] [address], [facility] [place] [id number] Kristine Zuniga MD Wound of back, unspecified laterality, sequela (Primary Dx) 09/17/2024 Travel from Last 3 Months Immunizations Immunization Administration Dates Next Due INFLUENZA VACCINE, TRIV. (FL UZONE; FLULAVAL; FLUARIX; AFLURIA TRIVALENT; 6MO+), 0.5 ML (IIV3) 04/13/2024 Social History Tobacco Use Types Packs/Day Years Used Date Smoking Tobacco: Every Day Cigarettes 0.5 21.5 Started: 2003 Smokeless Tobacco: Current Tobacco Cessation:Ready to Q uit: Not Asked; Counseling Given: Not Answered Alcohol Use Standard Drinks/Week Comments Not Currently 0 (1 standard drink = 0.6 oz pur e alcohol) AUDIT-C Answer Date Recorded Q1: How often do you have a drink containing alcohol? Never 05/27/2024 Q2: How many drinks containi ng alcohol do you have on a typical day when you are drinking? Patient does not drink Q3: How often do you have si x or more drinks on one occasion? Never 05/27/2024 Overall Financial Resource Strain (CARDIA) Answe r Date Recorded How hard is it for you to pa y for the very basics like food, housing, medical care, and heating? Not very hard 05/27/2024 PHQ-2 Answer Date Recorded Patient Health Questionnaire-2 Score 0 05/20/2024 [facility] - Occupational Stress Questionnaire Answer Date Recorded Do you feel stress - tense, restless, nervous, or anxious, or unable to sleep at night because your mind is troubled all the time - these days? Not at all 05/27/2024 Hunger Vital Sign Answer Date Recorded Within the past 12 months, y ou worried that your food would run out before you got the money to buy more. Never true 05/27/20 24 Within the past 12 months, t he food you bought just didn't last and you didn't have money to get more. Never true 05/27/2024 PRAPARE - Transportation Answer Date Re corded In the past 12 months, has l ack of transportation kept you from medical appointments or from getting medications? No 05/11 In the past 12 months, has l ack of transportation kept you from meetings, work, or from getting things needed for daily living? No 05/27/2024 Housing Stability Vital Sign Answer Jah e Recorded In the last 12 months, was t here a time when you were not able to pay the mortgage or rent on time? No 05/27/2024 In the past 12 months, how m any times have you moved where you were living? 1 05/27/2024 At any time in the past 12 m [address] [place] [place], were you homeless or living in a long-term (including now)? No 05/27/2024 Comments Unknown Sex and Gender Information Value Date Recorded Sex Assigned at Not on file Legal Sex Female 1:49 PM CDT Gender Identity Not on file Sexual Orientation Not on file Last Filed Vital Signs Vital Sign Reading Time Taken Comments Blood Pressure 158/89 09/17/2024 10:52 AM CDT Pulse 91 09/17/2024 10:52 AM CDT Temperature 36.8 C (98.3 F) 09/17/2024 10:52 AM CDT Respiratory Rate 15 05/29/2024 4:36 AM OUTPATIENT PHARMACY MANAGER Oxygen Saturation 99% 09/17/2024 10:52 AM CDT Inhaled Oxygen Concentration 30% 04/13/2024 4 :10 AM OUTPATIENT PHARMACY MANAGER Weight 90.7 kg (200 lb) 10/07/2024 9:57 AM CDT Height 158.5 cm (5' 2.4) 10/07/2024 9:57 AM CDT Body Mass Index 36.11 10/07/2024 9:57 AM CDT Plan of Treatment Upcoming Encounters Date Type Department Care Team (Late st Contact Info) Description 04/07/2025 10:15 AM CDT Office Visit [facility] [address] [place] [address], [facility] [place] [address] Juan David Escamilla MD [address] [place] [address] Health Maintenance Due Date Last Done Comments COLOGUARD (AGES 45-75) - COLON CA SCREENING 1962 COLON MONITORING 1962 COLONOSCOPY - COLON CA SCREENING 1962 CT COLONOGRAPHY - COLON CA SCREENING 1962 Colorectal Cancer Screening 1962 FIT - COLON CA SCREENING 1962 FLEX SIG - COLON CA SCREENING 1962 HIV SCREENING 1977 HEPATITIS C SCREENING 04/20/1980 DTAP/TDAP/TD VACCINES (1 - Tdap) 1981 PNEUMOCOCCAL VACCINE 50+ (1 of 2 - PCV) 1981 PAP SMEAR 1983 ZOSTER VACCINE (1 of 2) 2012 HEPATITIS B VACCINE (1 of 3 - Risk 3-dose series) 2022 Respiratory Syncytial Virus (RSV) Vaccine Pt: or over 60 yrs (1 - Risk 60-74 years 1-dose series) 2022 MAMMOGRAM 08/04/2022 08/04/2020, /09/2020, 07/24/2019, Additional history exists DIABETES RETINOPATHY SCREENING 01/23/2024 DIABETES-FOOT EXAM WITH MONOFILAMENT 01/23/2024 COVID-19 VACCINE ( season) 2024 DEPRESSION SCREENING 06/11/2024 05/20/2024 DIABETES - URINE PROTEIN SCREENING 06/11/2024 DIABETES-HGB A1C 09/23/2024 03/25/2024, 10/10/2023 DIABETES-SERUM CREATININE 05/29/20252023, 05/28/2024, 05/27/2024, Additional history exists INFLUENZA VACCINE Completed 04/13/2024 HIB VACCINE Aged Out No longer eligi ble based on patient's age to complete this topic HPV VACCINE Aged Out No longer eligi ble based on patient's age to complete this topic MENINGOCOCCAL (Group B) VACCINE SHARED DECISION-MAKING Aged Out No longer eligible based on patient's age to complete this topic MENINGOCOCCAL GROUPS A/C/Y/W VACCINE Aged Out No longer eligible based on patient's age to complete this topic Goals Goal Patient Goal Type Associated Problems Recent Progress Patient-Stated? Author Mobility General No Leora Cohen, RN Note: Expected end date: 10/28/2024 The goal is to maintain or improve your mobility at the optimum level for you. Interventions: Complete physical therapy Medical Devices Implanted Type Area Admissions Specialist Device Identifier Shelf Expiration Date Model / Serial / Lot Ifuse [place] Implant 10.5mm X 80mm Implanted:Qty: 1 on 04/11/2024 by Juan David Escamilla MD at [facility] N/A: Pelvis [employer] 12/02/2033 [id number] / [id number] / Screw 6.5mm 50mm Pa Spne Xpdm Ti 5.5mm Implanted:Qty: 2 on 04/11/2024 by Juan David Escamilla MD at [facility] Synthes Spine [id number] / / Screw 6.5mm 45mm Pa Spne Xpdm Ti 5.5mm Implanted:Qty: 1 on 04/11/2024 by Juan David Escamilla MD at [facility] Synthes Spine [id number] / / Screw 5.0mm 40mm Spne Pa 1 Innie Xpdm Implanted:Qty: 4 on 04/11/2024 by Juan David Escamilla MD at [facility] N/A: Thoracic [id number] / / Screw 5.0mm 45mm Spne Pa 1 Innie Xpdm Implanted:Qty: 1 on 04/11/2024 by Juan David Escamilla MD at [facility] N/A: Thoracic [id number] / / Screw 5.5mm 50mm Spne Pa 1 Innie Xpdm Implanted:Qty: 1 on 04/11/2024 by Juan David Escamilla MD at [facility] N/A: Thoracic [id number] / / Screw 7.0mm 40mm Spne Pa 1 Innie Xpdm Implanted:Qty: 1 on 04/11/2024 by Juan David Escamilla MD at [facility] N/A: Thoracic [id number] / / Gft Bone Pliaflix Prm 30cc Implanted:Qty: 1 on 04/11/2024 by Juan David Escamilla MD at [facility] N/A: Thoracic Lifenet 02/10/2029 / / [id number] Gft Bone Pliaflix Prm 30cc Implanted:Qty: 1 on 04/11/2024 by Juan David Escamilla MD at [facility] N/A: Thoracic Lifenet 02/10/2029 / / [id number] Gft Bone Pliaflix Prm 30cc Implanted:Qty: 1 on 04/11/2024 by Juan David Escamilla MD at [facility] N/A: Thoracic Lifenet 02/10/2029 / / [id number] Eit T/Plif H 9mm 8d, 06/03 Cage Implanted:Qty: 1 on 04/11/2024 by Juan David Escamilla MD at [facility] N/A: Thoracic [id number] / / Ifuse [place] Implant 10.5mm X 80mm Implanted:Qty: 1 on 04/11/2024 by Juan David Escamilla MD at [facility] N/A: Pelvis [employer] Inc 12/02/2033 [id number] / [id number] / Dave Spnl 480mm 5.5mm Xpdm Ti Nonster Implanted:Qty: 3 on 04/11/2024 by Juan David Escamilla MD at [facility] N/A: Spine Lumbar Synthes Spine [id number] / / Screw Set Ti 5.5mm Spne 1 Inr Ma Xpdm Implanted:Qty: 30 on 04/11/2024 by Juan David Escamilla MD at [facility] N/A: Spine Lumbar Synthes Spine [id number] / / Screw 7.5mm 45mm Pa Spne Pdcl Xpdm Ti Implanted:Qty: 1 on 04/11/2024 by Juan David Escamilla MD at [facility] N/A: Spine Lumbar Synthes Spine [id number] / / Cnct Dave 13mm Xpdm Spne Ant Cx Nonster Implanted:Qty: 6 on 04/11/2024 by Juan David Escamilla MD at [facility] N/A: Spine Lumbar Depuy Spine [id number] / / Si Polyaxl Screw [id number] Implanted:Qty: 2 on 04/11/2024 by Juan David Escamilla MD at [facility] N/A: Thoracic [id number] / / Kit Bone Cmnt Cnfd No Ndl Lf Implanted:Qty: 1 on 04/11/2024 by Juan David Escamilla MD at [facility] N/A: Spine Lumbar Depuy Spine 09/08/2025 [id number] / / [id number] Screw 4.35mm 40mm Pa 1 Innie Spne Xpdm Implanted:Qty: 14 on 04/11/2024 by Juan David sEcamilla MD at [facility] Depuy Spine [id number] / / Screw 4.35mm 45mm Pa 1 Innie Spne Xpdm Implanted:Qty: 1 on 04/11/2024 by Juan David Escamilla MD at [facility] Depuy Spine [id number] / / Screw 7mm 50mm Pa Spne Pdcl Xpdm Ti Implanted:Qty: 1 on 04/11/2024 by Juan David Escamilla MD at [facility] Synthes Spine [id number] / / Screw Exp Ti Poly [id number] Implanted:Qty: 1 on 04/11/2024 by Juan David Escamilla MD at [facility] Synthes Spine [id number] / / Screw 7.5mm 50mm Pa Spne Pdcl Xpdm Ti Implanted:Qty: 1 on 04/11/2024 by Juan David Escamilla MD at [facility] Synthes Spine [id number] / / Explanted Type Area Admissions Specialist Device Identifier Shelf Expiration Date Model / Serial / Lot Impl Spnl [facility] Ifuse Grnt Sys Explanted:Qty: 2 on 04/11/2024 by Juan David Escamilla MD at [facility] N/A: Pelvis SI[employer] Inc [id number] / / Procedures Procedure Name Priority Date/Time Associated Diagnosis Comments XR SPINE ENTIRE 2 OR 3VW Routine 10/07/2024 9:52 AM CDT H/O spinal fusion BASIC METABOLIC PANEL (CALCIUM TOTAL) AM Draw 05/29/2024 12:28 AM OUTPATIENT PHARMACY MANAGER S/P lumbar spinal fusion Open wound of lumbar region HEMOGLOBIN A1C Routine 03/25/2024 1:26 PM CDT Pre-op exam from Last 3 Months or Most Recently Relevant to Health Maintenance Results * XR Spine Entire 2 or 3Vw (10/07/2024 9:52 AM CDT) Anatomical Region Laterality Modality Spine Radiographic Kasey ging 10/07/2024 10:0 3 AM CDT Impressions 10/07/2024 10:05 AM CDT IMPRESSION: Instrumented spinal fusion from T4 to the iliac bones, unchanged. > Interpreting Provider: Zack Cornelius MD on 10/07/2024 10:05 AM Narrative 10/07/2024 10:05 AM CDT PROCEDURE: XR SPINE ENTIRE 2 OR 3VW DATE/TIME OF EXAM: 10/07/2024 9:52 AM CLINICAL INFORMATION: None relevant/not provided if blank. Indication: Z98.1: H/O spinal fusion Additional History: COMPARISON: 06/24/2024. TECHNIQUE: FINDINGS: There is again instrumented spinal fusion from T4 to the iliac bones with posterior rods, screws, and interbody fusion devices in the lumbar region. The instrumentation is intact. Laminectomy is evident in the lumbar region. There vertebroplasty/kyphoplasty cement in the T3 and T4 vertebral bodies, unchanged. There is grade 1 anterolisthesis at L5-S1. Procedure Note Zack Cornelius MD - 10/07/2024 PROCEDURE: XR SPINE ENTIRE 2 OR 3VW DATE/TIME OF EXAM: 10/07/2024 9:52 AM CLINICAL INFORMATION: None relevant/not provided if blank. Indication: Z98.1: H/O spinal fusion Additional History: COMPARISON: 06/24/2024. TECHNIQUE: FINDINGS: There is again instrumented spinal fusion from T4 to the iliac boneswith posterior rods, screws, and interbody fusion devices in the lumbarregion. The instrumentation is intact. Laminectomy is evident in the lumbarregion. There vertebroplasty/kyphoplasty cement in the T3 and T4 vertebralbodies, unchanged. There is grade 1 anterolisthesis at L5-S1. IMPRESSION: Instrumented spinal fusion from T4 to the iliac bones, unchanged. > Interpreting Provider: Zack Cornelius MD on 10/07/2024 10:05 AM Juan David Escamilla MD DIAGNOSTIC IMAGING ORDERABLES Fi nal Result * (ABNORMAL) BASIC METABOLIC PANEL (CALCIUM TOTAL) (05/29/2024 12:28 AM OUTPATIENT PHARMACY MANAGER) BUN 22 7 - 26 mg/dL 05/29/2024 1:41 AM OUTPATIENT PHARMACY MANAGER [facility] Creatinine 0.80 0.56 - 0.96 mg/dL 05/29/2024 1:41 AM [facility] Sodium 135(L) 136 - 145 mmol/L 05/29/2024 1:41 AM [facility] Potassium 4.5 3.5 - 4.5 mmol/L 05/29/2024 1:41 AM [facility] Chloride 103 98 - 107 mmol/L 05/29/2024 1:41 AM [facility] CO2 26 22 - 29 mmol/L 05/29/2024 1:41 AM [facility] Glucose 99 70 - 99 mg/dL 05/29/2024 1:41 AM [facility] Calcium 9.2 8.4 - 10.2 mg/dL 05/29/2024 1:41 AM [facility] Anion Gap 6 6 - 16 05/29/2024 1:41 AM [facility] BUN/Creatinine Ratio 28(H) 7 - 23 05/29/2024 1:41 AM [facility] Osmolality Calculated 283 275 - 295 mOsm/kg 05/29/2024 1:41 AM [facility] eGFR by CKD-EPI 83(L) >=90 mL/min/1.7 3 m2 05/29/2024 1:41 AM [facility] Blood BLOOD SPECIMEN / Unknown Lab Venipuncture / Unknown 05/29/2024 12:28 AM [facility] 05/29/2024 1:11 AM [facility] Juan David Escamilla MD LAB - CHEMISTRY ORDERABLES Final Result Performing Organization Address [facility]/State/[facility] de Phone Number [address] [address] [phone] * HEMOGLOBIN A1C [IN-HOUSE TEST] (03/25/2024 1:26 PM CDT) Hemoglobin A1c 5.4 <=5.6 % 03/26/2024 9:40 AM [facility] Estimated Average Glucose 108 mg/dL 03/26/2024 9:40 AM [facility] Comment: HbA1c Interpretation: Normal : < 5.7% Pre-diabetes: 5.7-6.4% Diabetes: Equal to or greater than 6.5% Test results diagnostic of diabetes should be repeated for confirmation. Treatment target values recommended by ADA and other clinical organizations should be used to evaluate metabolic control in patients. Reference: [place] Diabetes Association, Standards of Care in Diabetes -2020 In patients 70 years and older consider HbA1c target range of 7.0-7.5% (Reference: Brady Albert et al. JAMDA. 2012) The Sebia assay for the measurement of HbA1c is a National Glycohemoglobin Standardization Program (NGSP) certified method. Blood BLOOD SPECIMEN WITH EDTA / Unknown Lab Venipuncture / Unknown 03/25/2024 1:26 PM CDT 03/25/2024 2:09 PM CDT us Supriya Lira PATENTS EXAMINER-GROMMET MAN LAB - CHEMISTRY ORDERABL ES Final Result [address] [address], [facility] [phone] from Last 3 Months or Most Recently Relevant to Health Maintenance Additional Health Concerns Infection Onset Date Last Indicated MRSA Hx Comment:From outside infection 04/10/2024 04/10/2024 [place] [address] [facility] Advance Directives * Full Code (Latest Code Status on File) Date Activated Date Inactivated Comments 05/27/2024 7:17 AM 05/29/2024 11:24 AM * Full Code Date Activated Date Inactivated Comments 04/11/2024 7:19 PM 04/16/2024 11:41 AM * Full Code Date Activated Date Inactivated Comments 04/11/2024 6:54 PM 04/11/2024 7:19 PM Care Teams Christmas Tree Farmer Relationship Specialty Start Date End Date Richard Eubanks MD [address] [place] [address] PCP - General Family Medicine 12/10/23
--- OUTSIDE RECORDS SUMMARY | 2024-12-08 11:41 | XMS_ITS | Referral Summary ---
Author Organization [facility] Address [address] [place] [address] Care Team Providers Care Staff Research Associate Name Role Phone Richard Eubanks MD Primary Care Provider [phone] Allergies Active Allergy Reactions Criticality Noted Date [...] extremity, unspecified later ality 10/10/2023 Dermatitis 10/10/2023 Social History Tobacco Use Types Packs/Day Years [...] on file Legal Sex Female 2:56 AM DATA PROCESSING MECHANIC Gender Identity Not on file Sexual Orientation [...] kg (210 lb 9.6 oz) 10/10/2023 3:22 AM CDT Height 157.5 cm (5' 2) 10/10/2023 3:22 AM CDT Body Mass Index 38.52 10/10/2023 3:22 AM CDT Plan of Treatment Not on file Procedures Procedure Name Priority Date/Time Associated Diagnosis Comments HEPATITIS PANEL, ACUTE Routine 10/10/2023 9:58 PM CDT SCREENING MAMMOGRAM BILATERAL W CHARMAINE Schedule Routine, Read Routine (OP Routine) 08/04/2020 1:36 PM DATA PROCESSING MECHANIC Encounter for screening mammogram for malignant neoplasm of breast from Last 3 Months or Most Recently Relevant to Health Maintenance Results * Hepatitis panel, acute Blood (10/10/2023 9:58 PM CDT) Hep A IgM Nonreactive Nonreactive Hep B core IgM Nonreactive Nonreactive [facility] Hep C Ab Nonreactive Nonreactive [facility] Comment:Antibodies to HCV no t detected. Does NOT exclude the possibility of recent exposure to HCV. Current interpretive data was last revised on 22 HepBsAg Nonreactive Nonreactive [facility] Blood 10/10/2023 9:58 PM CDT 10/10/2023 10:13 PM CDT us Dianelys Pickens MD LAB MICROBIOLOGY - GENERAL ORDERABLES Final Result [facility] [place] [address] * Screening Mammogram Bilateral W Charmaine (08/04/2020 1:36 PM DATA PROCESSING MECHANIC) Anatomical Region Laterality Modality Breast Bilateral Mammography Narrative 08/06/2020 11:52 AM DATA PROCESSING MECHANIC Screening Mammogram Bilateral W Charmaine: 08/04/20 Clinical: Encounter for screening mammogram for [...] Most Recently Relevant to Health Maintenance Insurance [facility] H[facility]/PPO Address: [address] [address] [place] [address] [facility] [place] [address] [facility] [employer] CHOICE Advance Directives For more information, please contact: [phone] * Full Code (Latest Code Status on File) Date Activated Date Inactivated Comments 10/10/2023 2:56 AM 10/14/2023 10:56 PM Care Teams Staff Research Associate Relationship Specialty Start Date End Date Richard Eubanks MD [address] [place] [id number] PCP - General 07/06/17
--- OUTSIDE RECORDS SUMMARY | 2024-12-08 11:41 | XMS_ITS | Patient Health Record ---
Author Organization [facility] Address [address] [place] [address] Care Team Providers Care Supervisor Fabrication Department Name Role Phone Raimundo MORELAND, Richard Primary Care Provider Unavailab Derrek Clements Unavailable [phone] Omar Berman Unavailable Unavailable ALLERGIES Allergen (clinical drug ingredient) Drug/Non Drug Allergy documented on EMR Reaction Allergy Type Onset Date Status Latex Latex Unknown Allergy Active cephalexin Cephalexin Unknown Drug Allergy Activ e Keflex Unknown Drug Allergy Active Cefzil Unknown Drug Allergy Active Tape (uncoded) Unknown Allergy Activ e RESULTS Component Value Reference Range Notes X ray : Lumbar Spine 3 views , AP, Lateral, Spot Reviewed date:01/17/2024 12:45:00 PM Interpretation:1122 Performing Lab: Notes/Report: 1122 REASON FOR REFERRAL No Information MEDICATIONS Medication SIG (Take, Route, Frequency, Duration) Notes Start Date End Date Status Vancomycin Active NovoFine Not-Taking Furosemide 20mg QD Active Victoza Not-Taking HYDROcodone-Acetaminophe n 5-325 MG 1 tablet as needed Orally every 4-6 hrs for 7 days 08/16/2023 Not-Taking Aleve Not-Taking Baby Aspirin Not-Addy ing Ibuprofen 800 MG 1 tablet with food Orally Three times a day for 30 prn Not-Taking Apple Cider Vinegar Active Diclofenac Active Lisinopril-hydroCHLOROth iazide Active Sulfamethoxazole-TMP DS 800-160 MG 1 tablet Orally Twice a day for 5 days 02/24/2015 Not-Taking Vitamin B + C Complex Active Gabapentin Active Lisinopril Not-Takin g Ozempic Active traMADol HCl 50 MG 1 tablet as needed Orally every 4-6 hours for 7 days 02/10/2022 Not-Taking Lexapro Active Atorvastatin Calcium Active metFORMIN HCl Active amLODIPine Besylate Active Glimepiride Active tiZANidine HCl 4 MG TAKE 1 TABLET BY JOHNNIE TH THREE TIMES DAILY NEEDED FOR SPASMS for 30 Active Baclofen Not-Taking oxyCODONE-Acetaminophen 7.5-325 MG 1 tablet as needed Orally every 4-6 hrs for 7 days PCP 09/24/2023 Active Ursodiol Active Accu-Chek Active Act shruti PROBLEMS Problem Type ICD Code Onset Dates Problem Status W/U Status Risk SNOMED Code Notes Problem Degenerative joint disease (DJD) of lumbar spine (M47.816) Active confirmed Lumbosacral spondylosis without myelopathy (60706928) Problem Spondylolisthes is, lumbar region (M43.16) Active confirmed Acquired spondylolisthesis (099096746) Problem DDD (degenerative disc disease), lumbar (M51.36) Active confirmed Degenerative disc disease (15112504) Problem Diabetes mellitus (E11.9) Active confirmed Diabetes mellit us (44293927) Problem Lumbar herniated disc (M51.26) Active confirmed Displacement of lumbar intervertebral disc without myelopathy (11190409) Problem Facet degeneration of lumbar region (M47.816) Active confirmed Lumbosacral spondylosis without myelopathy (40093804) VITAL SIGNS Height 62 in 01/17/2024 Weight 195 lbs 01/17/2024 BMI 35.66 kg/m2 01/17/2024 Encounters Encounter Location Date Provider Diagnosis [facility] [address] [address] 01/17/2024 Derrek Santos H/O spinal fusion Z98.1 ; Other low back pain M54.59 and Spondylolisthesis, lumbar region M43.16 [facility] [address] [facility] [address] [place] [address] 12/10/2023 Derrek Santos [facility] [address] [facility] [address] [place] [address] 01/01/2024 Derrek Santos [facility] [address] [facility] [address] [place] [address] 01/04/2024 Derrek Santos [facility] [address] [place] [address] 02/07/2024 Derrek Santos [facility] [address] [place] [address] 05/07/2024 Derrek Santos [facility] [address] [place] [address] 05/12/2024 Derrek Santos ASSESSMENTS Encounter Date Diagnosis Assessment Notes Treatment Notes Treatment Clinical Notes Section Notes 01/17/2024 H/O spinal fusion (ICD-10 - Z98.1) <b>IMPRESSION:</b > Status post lumbar decompressive laminectomy and fusion. Failed spinal hardware. Lateral listhesis L2-3. History of wound infection. <b>PLAN:</b> I explained to the patient at present it is my opinion it is in her best interest to continue under the care of Dr. Escamilla. She will continue wearing a TLSO and continue with home exercises. She will contact us when they have determined her treatment plan. She will follow up at some point after her surgery is performed. ALF/cp 01/17/2024 Other low back pain (ICD-10 - M54.59) <b>IMPRESSION:</b > Status post lumbar decompressive laminectomy and fusion. Failed spinal hardware. Lateral listhesis L2-3. History of wound infection. <b>PLAN:</b> I explained to the patient at present it is my opinion it is in her best interest to continue under the care of Dr. Escamilla. She will continue wearing a TLSO and continue with home exercises. She will contact us when they have determined her treatment plan. She will follow up at some point after her surgery is performed. ALF/cp 01/17/2024 Spondylolisthe sis, lumbar region (ICD-10 - M43.16) <b>IMPRESSION:</b > Status post lumbar decompressive laminectomy and fusion. Failed spinal hardware. Lateral listhesis L2-3. History of wound infection. <b>PLAN:</b> I explained to the patient at present it is my opinion it is in her best interest to continue under the care of Dr. Escamilla. She will continue wearing a TLSO and continue with home exercises. She will contact us when they have determined her treatment plan. She will follow up at some point after her surgery is performed. ALF/cp PLAN OF TREATMENT Pending Test Test Name Order Date CBC With Differential/Platelet PT AND PTT 08/16/2023 Vitamin D, 25-Hydroxy 08/16/2023 Chem-Comprehensive 08/16/2023 Insurance Providers Payer Name Payer Address Payer Phone Subscriber Number Group Number Insured Name Patient Relationship to Insured Coverage Start Date Coverage End Date Beatrice THOMAS Mo [address] [place] [address] [id number] Debra Peres Self - patient is the insured MEDICAL (GENERAL) HISTORY Medical History History ICD Code Hypertension Diabetes type 2 Back pain Numbness in feet Sciatica Degenerative disc disease Degenerative spondylolisthesis Spinal stenosis Facet DJD Chronic L. drop foot Peripheral polyneuropathy Denies h/o emotional/psychiatric disorde r Denies h/o drug/chemical dependency Surgical History Surgery Date(Month/Year) 1989, 1992, 1999 Breast reduction 2000 L4-S1 fusion 2014 L1-L4 LDL, L2-L4 post lat fu irma, L3-4 soft PLIF, L2-3 interbody fusion 08/28/2023 I&D, BENI right L2-S1 09/19/2023
== END 2024-12-08 11:00 | disposition home or self-care (01) ==
PROVIDERS: PCP Family Medicine
DX: K42.9 Umbilical hernia without obstruction or gangrene (principal); K74.3 Primary biliary cirrhosis; K75.81 Nonalcoholic steatohepatitis (NASH); Z98.890 Other specified postprocedural states
CPT/HCPCS: 74176